=== PATIENT | female | born 1935 | race Caucasian/White ===

== ENCOUNTER 2019-02-15 10:19 | Outpatient (CLI) | payer OTHER | END 2019-02-15 10:20 | disposition home or self-care (01) | LOC: NONPT 10:19 | PROVIDERS: ATTEND Internal Medicine | DX: Z79.899 Other long term (current) drug therapy (principal) | CPT/HCPCS: 80053; 80164; 85025 ==

== ENCOUNTER 2019-08-18 13:51 | Inpatient (IN) ==
[2019-08-18 13:57] VITALS: BMI 29.2
--- NOTE | 2019-08-18 14:55 | ED.PDOC ---
General ED Provider: Dr. CHRISTIANNE MARIE Chief Complaint: Weakness Stated Complaint: [place] authorities stated patient developed increased weakness upon awakening today and appeared peoples in color , head listed to the lt side, associated low BP. Difficulties with ambulance availability and facility finally transported patient and upon arrival family indicate she was back to being her original self Time Seen by Physician: 14:20 Mode of Arrival: Wheelchair Information Source: Patient Exam Limitations: Clinical condition Primary Care Provider: RANDA REY Nursing and Triage Documentation Reviewed and Agree: Yes Does patient meet sepsis criteria?: No System Inflammatory Response Syndrome: Not Applicable Sepsis Protocol: For patient's 13 years and over: Temp is 96.8 and below OR 101 and greater Pulse >90 BPM Resp >20/minute Acutely Altered Mental Status Are patient's symptoms suggestive of a new infection, such as: -Pneumonia -Skin, Soft Tissue -Endocarditis -UTI -Bone, Joint Infection -Implantable Device -Acute Abdominal Infection -Wound Infection -Meningitis -Blood Stream Catheter Infection -Unknown Neurological Complaint Exam Weakness Complaint/Exam Last Known Well: last pm Onset: Sudden Duration: 30 min Symptoms Are: Still present Timing: Intermittent Episodes Lasting: Minutes Initial Severity: Moderate Current Severity: None Aggravating: Reports None Alleviating: Reports Rest Associated Signs and Symptoms: Denies Nausea, Vomiting, Diaphoresis, Tinnitus, Chest pain, Short of air, Palpitations, Unsteady gait, GI blood loss, Visual changes, Decreased oral intake, Change in medication, Change in diet, OTC meds and Loss of balance Related History: Similar episode (last ) Cardiac Risk Factors: Reports Hypertension, Family history and CAD Review of Systems Review Of Systems Constitutional: Reports Weakness Eyes: Reports No symptoms Ears, Nose, Mouth, Throat: Reports No symptoms Respiratory: Reports No symptoms Cardiac: Reports No symptoms GI: Reports No symptoms : Reports No symptoms Musculoskeletal: Reports No symptoms Skin: Reports No symptoms Neurological: Reports No symptoms, Emotional problems and Cognitive dysfunction Endocrine: Reports No symptoms Hematologic/Lymphatic: Reports No symptoms All Other Systems: Reviewed and Negative [facility] Medical History (Updated 08/18/19 @ 17:27 by LATASHA LOREDO RN) Benign breast lumps (Acute) Cataract (lens) fragments in eye following cataract surgery, bilateral (Acute) Constipation (Acute) Gallstones (Acute) History of colon resection (Acute) History of hysterectomy (Acute) History of thyroid disease (Acute) Hx of cholecystectomy (Acute) Hyperlipidemia (Acute) Hypertension (Acute) Influenza (Acute) Left-sided carotid artery obstruction (Acute) Pneumonia (Acute) Family History (Updated 08/18/19 @ 17:27 by LATASHA LOREDO RN) BROTHER Diabetes Mother Dementia SISTER Dementia Social History (Updated 08/18/19 @ 17:28 by LATASHA LOREDO RN) Smoking and tobacco status: Never smoker Physical Exam Physical Exam Appearance: Reports Ill-appearing, No pain distress and Thin Ill-appearing: Mild Pain Distress: Moderate Eyes: Reports AMI, EOMI and Conjunctiva clear ENT: Reports Ears normal, Nose normal and Oropharynx normal Neck: Supple Respiratory: Reports Airway patent Cardiovascular: Reports RRR GI/: Reports Soft and Bowel sounds hyperactive Skin: Reports Warm Neurological: Reports Sensation intact, Motor intact, Cranial nerves intact, Alert to pain and Unresponsive Psychiatric: Reports Affect appropriate, Mood appropriate, Anxious and Depressed Interpretation Radiology Interpretation Exam Interpreted: CT Scan (Ventriculomegaly. This may be out of proportion to the degree of atrophy, and a component of normal pressure hydrocephalus cannot be excluded. Small right thalamic hypodensity suspicious for a lacunar infarct of indeterminate age. MRI could further evaluate if clinically indicated. ) Physician Notification Case Discussed Physician Notified: Dr Rey- will admit Time of Notification: 15:30 Physician Notified: Dr Rey- ronaldthertahira Depakote level; admin extra 250 mg today/500 mg q AM Time of Notification: 17:40 Critical Care Note Critical Care Note Total Time (mins): 30 Course Course Hematology/Chemistry: 08/18/19 15:25 08/18/19 15:25 Orders, Labs, Meds: Lab Review 08/18/19 08/18/19 08/18/19 15:25 15:25 15:25 WBC 8.48 RBC 3.59 L Hgb 12.0 Hct 37.1 MCV 103.3 H MCH 33.4 H MCHC 32.3 RDW Coeff of Courtney 11.9 Plt Count 211 Immature Gran % (Auto) 0.5 Neut % (Auto) 62.2 Lymph % (Auto) 19.1 [place] % (Auto) 14.6 H Eos % (Auto) 3.1 Baso % (Auto) 0.5 Immature Gran # (Auto) 0.0 Neut # (Auto) 5.3 Lymph # (Auto) 1.6 [place] # (Auto) 1.2 Eos # (Auto) 0.3 Baso # (Auto) 0.0 Sodium 141.4 Potassium 4.34 Chloride 101.6 Carbon Dioxide 33.1 H Anion Gap 11.04 BUN 23.3 H Creatinine 0.83 Estimated GFR (MDRD) 65.00 BUN/Creatinine Ratio 28.07 Glucose 99.1 Calcium 9.02 Total Bilirubin 0.48 AST 46.1 H ALT 33.9 Alkaline Phosphatase 134.4 Troponin I < 0.012 Total Protein 6.83 Albumin 3.38 L Globulin 3.45 Albumin/Globulin Ratio 0.97 TSH 2.920 Valproic Acid 08/18/19 15:25 WBC RBC Hgb Hct MCV MCH MCHC RDW Coeff of Courtney Plt Count Immature Gran % (Auto) Neut % (Auto) Lymph % (Auto) [place] % (Auto) Eos % (Auto) Baso % (Auto) Immature Gran # (Auto) Neut # (Auto) Lymph # (Auto) [place] # (Auto) Eos # (Auto) Baso # (Auto) Sodium Potassium Chloride Carbon Dioxide Anion Gap BUN Creatinine Estimated GFR (MDRD) BUN/Creatinine Ratio Glucose Calcium Total Bilirubin AST ALT Alkaline Phosphatase Troponin I Total Protein Albumin Globulin Albumin/Globulin Ratio TSH Valproic Acid 40.41 L Orders Category Date Time Status EKG-(ED ONLY) Stat CARDIO 08/18/19 16:12 Completed ACTIVITY .Complete BR CARE 08/18/19 16:17 Completed INTAKE & OUTPUT Q8HR CARE 08/18/19 16:14 Active VITAL SIGNS Q8HR CARE 08/18/19 16:15 Active REGULAR DIET DIETARY 08/18/19 Dinner Ordered IV [ED IV/MEDIPORT/POWERPORT] .ONCE EMERGENCY 08/18/19 16:14 Active CBC W/ AUTO DIFF DAILY@0600 LAB 08/19/19 06:00 Ordered CBC W/ AUTO DIFF DAILY@0600 LAB 08/20/19 06:00 Ordered CBC W/ AUTO DIFF Stat LAB 08/18/19 15:25 Completed CMP [COMPREHENSIVE METABOLIC PANEL] Stat LAB 08/18/19 15:25 Completed COMPREHENSIVE METABOLIC PANEL DAILY@0600 LAB 08/19/19 06:00 Ordered COMPREHENSIVE METABOLIC PANEL DAILY@0600 LAB 08/20/19 06:00 Ordered KEPPRA/LEVETIRACETAM Stat LAB 08/18/19 15:25 Received TROPONIN I Stat LAB 08/18/19 15:25 Completed TSH [THYROID STIMULATING HORMONE] Stat LAB 08/18/19 15:25 Completed VALPORIC ACID (DEPAKENE) Stat LAB 08/18/19 15:25 Completed 0.9 % Sodium Chloride [Saline Flush] MEDS 08/18/19 16:14 Active 1 syr IVF PRN PRN RESUSCITATION STATUS Routine OTHERS 08/18/19 16:[address] HEAD W/O CONTRAST Stat RADS 08/18/19 15:04 Completed PT CONSULT Routine THERAPIES 08/18/19 Ordered Medications Generic Name Dose Route Start Last Admin Trade Name Freq PRN Reason Stop Dose Admin Acetaminophen 1,000 mg 08/18/19 17:32 Tylenol PO Q6H PRN Pain Aspirin 81 mg 08/19/19 09:00 Aspirin Chewable PO DAILY SILVINA Bisacodyl 10 mg 08/18/19 17:32 Dulcolax RC DAILY PRN Constipation Clonidine 0.1 mg 08/18/19 21:00 Catapres PO BID SILVINA Divalproex Sodium 500 mg 08/19/19 09:00 Depakote PO DAILY SILVINA Docusate Sodium 100 mg 08/18/19 21:00 Colace PO BID SILVINA Escitalopram Oxalate 20 mg 08/19/19 09:00 Lexapro PO DAILY SILVINA Levothyroxine Sodium 50 mcg 08/19/19 09:00 Synthroid PO DAILY SILVINA Losartan Potassium 25 mg 08/19/19 09:00 Cozaar PO DAILY SILVINA Non-Formulary Medication 250 mg 08/19/19 09:00 Divalproex [Depakote Sprinkles] PO DAILY SILVINA Non-Formulary Medication 500 mg 08/18/19 21:00 Divalproex [Depakote Sprinkles] PO BEDTIME SILVINA Non-Formulary Medication 3 mg 08/18/19 21:00 Melatonin PO BEDTIME SILVINA Quetiapine Fumarate 12.5 mg 08/18/19 21:00 Seroquel PO BEDTIME SILVINA Sodium Chloride 1 syr 08/18/19 16:14 Saline Flush IVF PRN PRN To flush IV Discontinued Medications Generic Name Dose Route Start Last Admin Trade Name Freq PRN Reason Stop Dose Admin Divalproex Sodium 250 mg 08/18/19 17:42 Depakote PO 08/18/19 17:43 ONCE STA Vital Signs: Temp Pulse Resp BP Pulse Ox 08/18/19 13:51 98.3 F 59 L 18 145/79 H 95 Discharge Plan Discharge Patient Disposition: ADMITTED INPATIENT Discharge Problem: Altered level of consciousness, Infarction of thalamus, Dementia ED Provider: CHRISTIANNE MARIE Condition: Fair Discharge Date/Time: 08/18/19 17:06 Additional Information: Discussed with Family and Dr Rey
[2019-08-18 15:33] LABS: HEMATOCRIT 37.1 % (37.0-47.0)
--- NOTE | 2019-08-18 15:37 | CT ---
EXAM: CT of the head without contrast. HISTORY: TIA. COMPARISON: None available. TECHNIQUE: Noncontrast CT of the head. FINDINGS: No intracranial hemorrhage or mass effect is identified. Moderate prominence of the sulci is identif ied. There is generalized dilation of the ventricles which may be out of proportion to the degree of atrophy. Moderate to severe bilateral periventricular white matter hypodensities are identified. A right thalamic small hypodensity is seen on axial image 17. Right occipital encephalomalacia is martin ntified. Intracranial calcified atherosclerotic plaque is present. The calvarium is intact. The visualized paranasal sinuses are unopacified. IMPRESSION: No intracranial hemorrhage or mass effect. Moderate to severe atrophy and chronic small vessel ischemic changes. Ventriculomegaly. This may be out of proportion to the degree of atrophy, and a component of normal pressure hydrocephalus cannot be excluded. Small right thalamic hypodensity suspicious for a lacunar infarct of indeterminate age. MRI could fu rther evaluate if clinically indicated. Right occipital remote infarct. Findings were discussed with Dr. Carlson at 1531 hours on 08/18/19.
[2019-08-18] MEDS ORDERED: DULCOLAX RC PRN (17:32)
[2019-08-18] MEDS ORDERED: TYLENOL PO PRN (17:32)
[2019-08-18] MEDS ORDERED: DEPAKOTE PO STA (17:42)
[2019-08-18] MEDS ORDERED: DEPAKOTE PO SCH (20:30)
[2019-08-18] MEDS: CATAPRES PO SCH (20:32)
[2019-08-18] MEDS: SEROQUEL PO SCH (20:32)
[2019-08-18] MEDS: COLACE PO SCH (20:32)
[2019-08-18] MEDS ORDERED: DEPAKOTE SPRINKLES PO SCH (21:00)
[2019-08-19 04:27] LABS: HEMATOCRIT 33.8 % (37.0-47.0)
[2019-08-19] MEDS: SYNTHROID PO SCH (06:02)
[2019-08-19] MEDS: ASPIRIN CHEWABLE PO SCH (08:53)
[2019-08-19] MEDS: COLACE PO SCH ×2 (08:54→20:01)
[2019-08-19] MEDS: CATAPRES PO SCH ×2 (08:54→20:02)
[2019-08-19] MEDS: LEXAPRO PO SCH (08:54)
[2019-08-19] MEDS: COZAAR PO SCH (08:54)
[2019-08-19] MEDS: DEPAKOTE SPRINKLES PO SCH ×2 (08:55→17:19)
[2019-08-19] MEDS ORDERED: DEPAKOTE PO SCH (09:00)
[2019-08-19] MEDS ORDERED: DEPAKOTE SPRINKLES PO SCH (09:00)
[2019-08-19] MEDS: SEROQUEL PO SCH (20:01)
[2019-08-20 05:14] LABS: HEMATOCRIT 37.8 % (37.0-47.0)
[2019-08-20] MEDS: SYNTHROID PO SCH (05:43)
[2019-08-20] MEDS: DEPAKOTE SPRINKLES PO SCH ×2 (09:17→16:51)
[2019-08-20] MEDS: COLACE PO SCH ×3 (09:20→20:59)
[2019-08-20] MEDS: LEXAPRO PO SCH (09:20)
[2019-08-20] MEDS: ASPIRIN CHEWABLE PO SCH (09:20)
[2019-08-20] MEDS: COZAAR PO SCH (09:21)
[2019-08-20] MEDS: CATAPRES PO SCH ×2 (09:22→20:40)
[2019-08-20] MEDS ORDERED: DEPAKOTE PO STA (09:33)
[2019-08-20] MEDS ORDERED: DEPAKOTE SPRINKLES PO STA (09:38)
--- NOTE | 2019-08-20 11:19 | US ---
EXAM: ULTRASOUND CAROTID DUPLEX, BILATERAL HISTORY: Altered mental status FINDINGS: Ceron-scale ultrasound, color Doppler and spectral analysis was performed. Velocities are in meters per second. By ceron scale and color Doppler imaging, there was heterogeneous atherosclerotic plaque identified bi laterally, greater on the right which at some points appeared to be at least 50% vessel diameter. RIGHT: External carotid artery peak systolic velocity: 1.1/0.07 Common carotid artery peak systolic velocity/end diastolic velocity: 0.85/0.15 Internal carotid artery peak systolic velocity: 0.94 ICA/CCA peak systolic velocity ratio: 1.1 ICA end diastolic velocity: 0.26 LEFT: External carotid artery peak systolic velocity: 0.81/0.06 Common carotid artery peak systolic velocity/end diastolic velocity: 0.93/0.09 Internal carotid artery peak systolic velocity: 0.8 ICA/CCA peak systolic velocity ratio: 0.9 ICA end diastolic velocity: 0.21 The right and left vertebral arteries were antegrade. IMPRESSION: 1. By ceron scale and color Doppler imaging, there was heterogeneous atherosclerotic plaque identifie d bilaterally, greater on the right which at some points appeared to be at least 50% vessel diameter. 2. Internal carotid artery peak systolic velocities and ICA/CCA peak systolic velocity ratios indica te no hemodynamically significant stenosis bilaterally. 3. Both vertebral arteries were antegrade.
[2019-08-20] MEDS: SEROQUEL PO SCH (20:41)
[2019-08-20] MEDS ORDERED: MACRODANTIN PO SCH (21:00)
[2019-08-20] MEDS: MACROBID PO SCH (22:03)
[2019-08-21 05:08] VITALS: BP 119/51; TEMP 97.9
[2019-08-21] MEDS: SYNTHROID PO SCH (06:03)
[2019-08-21] MEDS: MACROBID PO SCH (08:53)
[2019-08-21] MEDS: ASPIRIN CHEWABLE PO SCH (08:53)
[2019-08-21] MEDS: COZAAR PO SCH (08:54)
[2019-08-21] MEDS: LEXAPRO PO SCH (08:54)
[2019-08-21] MEDS: CATAPRES PO SCH (08:54)
[2019-08-21] MEDS: COLACE PO SCH (08:54)
[2019-08-21] MEDS: DEPAKOTE SPRINKLES PO SCH (08:54)
--- NOTE | 2019-08-21 10:18 | DS ---
DATE OF SERVICE: 08/21/19 FINAL DIAGNOSIS: 1. ALTERED MENTAL STATUS,MULTIFUNCTIONAL 2. DEHYDRATION, IMPROVED WITH IMPROVEMENT IN KIDNEY FUNCTIONS 3. 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 UTI ( GRAM NEG RODS) HX: 1. MUSCLE WEAKNESS 2. DIFFICULTY IN WALKING 3. UNSPECIFIED SEQUELAE OF CEREBRAL INFARCTION 4. HYPERLIPIDEMIA 5. VASCULAR DEMENTIA WITH BEHAVIORAL DISTURBANCE 6. UNSTEADINESS ON FEET 7. NEED FOR ASSISTANCE WITH PERSONAL CARE 8. COGNITIVE COMMUNICATION DEFICIT 9. ESSENTIAL ( PRIMARY) HYPERTENSION LAST VITALS Temp Pulse Resp BP Pulse Ox 97.9 F 57 L 14 119/51 L 94 L 08/21/19 05:05 08/21/19 05:05 08/21/19 05:05 08/21/19 05:05 08/21/19 05:05 DISCHARGE INSTRUCTIONS: 1. DISCHARGE AND RETURN TO [facility] TODAY WEDNESDAY, AUGUST 21, 2019. 2. TAKE TO [facility] : CBC, CMP AND VALPROIC ACID LEVEL IN A WEEK THEN VALPROIC ACID MONTHLY, CBC, CMP EVERY 3 MONTHS, LIPIDS, A1C, TSH, T 4 EVERY [address] WHITTAKER/YUVAL NOE APRN TO SEE ON ROUNDS IN 5 - 10 DAYS. 4. CODE STATUS: DO NOT RESUSCITATE. MEDICATIONS AT DISCHARGE: Acetaminophen (Tylenol) 1,000 mg PO Q6H PRN PRN Reason: Pain Last Admin: 08/19/19 17:18 Dose: 1,000 mg Documented by: Aspirin (Aspirin Chewable) 81 mg PO DAILY [facility] Last Admin: 08/21/19 08:53 Dose: 81 mg Documented by: Bisacodyl (Dulcolax) 10 mg RC DAILY PRN PRN Reason: Constipation Clonidine (Catapres) 0.1 mg PO BID [facility] Last Admin: 08/21/19 08:54 Dose: 0.1 mg Documented by: Divalproex Sodium (Depakote Sprinkles) 500 mg PO BIDWM [facility] Last Admin: 08/21/19 08:54 Dose: 500 mg Documented by: Docusate Sodium (Colace) 100 mg PO BID [facility] Last Admin: 08/21/19 08:54 Dose: 100 mg Documented by: Escitalopram Oxalate (Lexapro) 20 mg PO DAILY [facility] Last Admin: 08/21/19 08:54 Dose: 20 mg Documented by: Levothyroxine Sodium (Synthroid) 50 mcg PO DAILY@0630 [facility] Last Admin: 08/21/19 06:03 Dose: 50 mcg Documented by: Losartan Potassium (Cozaar) 25 mg PO DAILY AT BEDTIME [facility] Last Admin: 08/21/19 08:54 Dose: 25 mg Documented by: Nitrofurantoin Macrocrystals (Macrobid) 100 mg PO BID [facility] X 7 DAYS ---(NEW) Stop: 08/23/19 21:29 Last Admin: 08/21/19 08:53 Dose: 100 mg Documented by: Non-Formulary Medication (Melatonin) 3 mg PO BEDTIME [facility] Last Admin: 08/20/19 22:10 Dose: Not Given Documented by: Quetiapine Fumarate (Seroquel) 12.5 mg PO BEDTIME [facility] Last Admin: 08/20/19 20:41 Dose: 12.5 mg Documented by: VITAMIN B 12 1000 MCG IM MONTHLY ( CONTINUE WITH [place] SCHEDULE ) NEW PRESCRIPTIONS: DEPAKOTE 500 mg PO BID MACROBID 100 MG PO BID X 7 DAYS DISCONTINUED MEDICATIONS: Divalproex Sodium (Depakote Sprinkles) 250 mg PO DAILY [facility] Divalproex Sodium (Depakote Sprinkles) 500 mg PO BEDTIME [facility] DIET INSTRUCTIONS: SOFT MECHANICAL, SPOON FED, CLINICAL ANALYST CONSULT ACTIVITY: UP IN CHAIR TOLERATED. PROM TO EXTREMITIES TOLERATED PER FACILITY SMOKING: NON- APPLICABLE DISEASE SPECIFIC EDUCATION: DEMENTIA AND BEHAVIORS HOSPITAL COURSE: 84-year-old /White female hospitalized with altered mental status, possibility of stroke or TIA. The patient's overall neurological status was normal in ER except for confusion. The patient is moving all extremities. Depakote level is on the low side so she has been given a few extra doses. Regular dose was increased to 500 mg b.i.d. Macrobid 100 mg p.o. b.i.d. times 7 days was given at the time of discharge. UA abnormal. She had heavy growth of gram negative rods; identification is pending. I talked to patient's son and the patient is DNR and wants supportive and comfort measures. Condition at the time of discharge is stable. LAB REVIEW: 08/21/19 06:50: Valproic Acid 53.66 08/21/19 05:50: Sodium 140.0, Potassium 4.22, Chloride 102.2, Carbon Dioxide 31.6 H, Anion Gap 10.42, BUN 18.1 H, Creatinine 0.68, Estimated GFR (MDRD) 82.00, BUN/Creatinine Ratio 26.61, Glucose 93.8, Calcium 8.68, Total Bilirubin 0.43, AST 39.6 H, ALT 26.7, Alkaline Phosphatase 106.6, Total Protein 6.22 L, Albumin 2.99 L, Globulin 3.23, Albumin/Globulin Ratio 0.92 08/21/19 05:50: WBC 7.76, RBC 3.43 L, Hgb 11.4 L, Hct 35.0 L, MCV 102.0 H, MCH 33.2 H, MCHC 32.6, RDW Coeff of Courtney 11.8, Plt Count 232, Immature Gran % (Auto) 0.6, Neut % (Auto) 62.3, Lymph % (Auto) 21.1, [place] % (Auto) 12.6 H, Eos % (Auto) 3.0, Baso % (Auto) 0.4, Immature Gran # (Auto) 0.1, Neut # (Auto) 4.8, Lymph # (Auto) 1.6, [place] # (Auto) 1.0, Eos # (Auto) 0.2, Baso # (Auto) 0.0 08/20/19 11:15: Urine Color Light, Urine Clarity Cloudy, Urine pH 7.0, Ur Specific [place] 1.020, Urine Protein Negative, Urine Glucose (UA) Negative, Urine Ketones Negative, Urine Blood 1+ H, Urine Nitrite Positive H, Urine Bilirubin Negative, Urine Urobilinogen 1.0 H, Ur Leukocyte Esterase 3+ H, Urine Microscopic RBC 2-5, Urine Microscopic WBC Tntc, Ur Squamous Epith Cells 2-5, Urine Bacteria 2+ TIME SPENT: More than 60 minutes. SCRIBED BY: JAHAIRA KUMAR, Surgeon Assistant scribed while in presence of service performed by Dr. RANDA WHITTAKER on 08/21/19 ([id number]) [facility]ITAL[facility]
--- NOTE | 2019-08-21 10:19 | PCM.PROG ---
Attending Provider: ATTENDING PROVIDER: Dr. RANDA WHITTAKER DATE OF SERVICE: 08/21/19 SUBJECTIVE: This 84 year old /WHITE F was hospitalized 08/18/19 with altered mental status. The patient's neurological status is normal except mental status. The patient is moving all extremities. The patient's echocardiogram was normal. REVIEW OF SYSTEMS: CONSTITUTIONAL: No night sweats. No fatigue, malaise, lethargy. No fever or chills. HEENT: Eyes: No visual changes. No eye pain. No eye discharge. ENT: No runny nose. No epistaxis. No sinus pain. No odynophagia. No congestion. RESPIRATORY: No cough, no congestion. No hemoptysis. No shortness of breath. CARDIOVASCULAR: No angina symptoms. No CHF symptoms. No atypical chest pain for CAD. No palpitations. No orthopnea.. GASTROINTESTINAL: No abdominal pain. No nausea or vomiting. No diarrhea or constipation. No hematemesis. No hematochezia. GENITOURINARY: No urgency. No frequency. No dysuria. No hematuria. No obstructive symptoms. No discharge. No pain. No significant abnormal bleeding. MUSCULOSKELETAL: No musculoskeletal pain; no joint swelling. NEUROLOGICAL: Awake, alert, confused. No headache. No neck pain. No syncope. No seizures. No dizziness. PSYCHIATRIC: Not anxious. No depression. No suicidal thoughts. No homicidal thoughts. SKIN: No rash. No lesions. No wounds. ENDOCRINE: No unexplained weight loss. No weight gain. HEMATOLOGIC/LYMPHATIC: No anemia. No purpura. No petechiae. No prolonged or excessive bleeding. No palpable lymph nodes. PHYSICAL EXAMINATION: GENERAL: The patient is awake, alert but confused, lying/sitting in bed in no distress. VITAL SIGNS: Temperature 97.9 F, Pulse 57, Respiratory Rate 14, BP 119/51, Pulse Ox 94% HEENT: Head normocephalic, atraumatic. Eyes: Extraocular muscles are intact. Pupils are equal, round and reactive to light and accommodation. Ears: No lesions. Nose appeared normal. Throat: No exudate or erythema. NECK: Supple. No JVD, no carotid bruit. No lymphadenopathy or thyromegaly. LUNGS: Decreased breath sounds. Clear to auscultation. Percussion note normal. Chest symmetrical. HEART: S1, S2, no S3. No murmurs. No cyanosis or clubbing. No ascites. Pulses: Dorsalis pedis and posterior tibial pulses +1 to +2 both sides. ABDOMEN: Soft. Non-tender. Bowel sounds active. No CVA tenderness. No mass felt. EXTREMITIES: No edema. Full range of motion of all extremities, equal. NEUROLOGIC: No focal deficit. Cranial nerves II through XII are grossly intact. No headache, no double vision or headache. SKIN: Warm and dry. Intact. Turgor-normal. LYMPHATIC: No palpable lymph nodes/no lymphedema. MUSCULOSKELETAL: Normal joints with no swelling. Muscle tone is normal. LAB REVIEW: 08/21/19 05:50 08/21/19 05:50 08/21/19 06:50: Valproic Acid 53.66 08/21/19 05:50: Sodium 140.0, Potassium 4.22, Chloride 102.2, Carbon Dioxide 31.6 H, Anion Gap 10.42, BUN 18.1 H, Creatinine 0.68, Estimated GFR (MDRD) 82.00, BUN/Creatinine Ratio 26.61, Glucose 93.8, Calcium 8.68, Total Bilirubin 0.43, AST 39.6 H, ALT 26.7, Alkaline Phosphatase 106.6, Total Protein 6.22 L, Albumin 2.99 L, Globulin 3.23, Albumin/Globulin Ratio 0.92 08/21/19 05:50: WBC 7.76, RBC 3.43 L, Hgb 11.4 L, Hct 35.0 L, MCV 102.0 H, MCH 33.2 H, MCHC 32.6, RDW Coeff of Courtney 11.8, Plt Count 232, Immature Gran % (Auto) 0.6, Neut % (Auto) 62.3, Lymph % (Auto) 21.1, [place] % (Auto) 12.6 H, Eos % (Auto) 3.0, Baso % (Auto) 0.4, Immature Gran # (Auto) 0.1, Neut # (Auto) 4.8, Lymph # (Auto) 1.6, [place] # (Auto) 1.0, Eos # (Auto) 0.2, Baso # (Auto) 0.0 08/20/19 11:15: Urine Color Light, Urine Clarity Cloudy, Urine pH 7.0, Ur Specific [place] 1.020, Urine Protein Negative, Urine Glucose (UA) Negative, Urine Ketones Negative, Urine Blood 1+ H, Urine Nitrite Positive H, Urine Bilirubin Negative, Urine Urobilinogen 1.0 H, Ur Leukocyte Esterase 3+ H, Urine Microscopic RBC 2-5, Urine Microscopic WBC Tntc, Ur Squamous Epith Cells 2-5, Urine Bacteria 2+ ASSESSMENT: Please see below. 1. Altered mental status seems to have improved. She is still confused but alert. 2. Hydration status improved with improvement in kidney functions. 3. No neurological deficit. Depakote level was low and given two extra doses of Depakote. Depakote has been increased to 500 mg b.i.d. She likely had tonoclonic seizure. No evidence of TIA. Carotid scans were at least 50% in vessel diameter. PLAN: 1. Macrobid 100 mg b.i.d. for 7 days. 2. Depakote 500 mg b.i.d. 3. Discharge back to shelter today. 4. The patient is DNR. Plan and coordination of the patient's care discussed in the presence of Casino Accountant and nurse. CONDITION: Stable SCRIBED BY: JAHAIRA KUMAR [employer] Merchandiser scribed while in presence of service performed by Dr. RANDA WHITTAKER on 08/21/19 ([id number])
--- NOTE | 2019-08-21 12:08 | CM.DICTOOL ---
ADMISSION: 08/18/19 16:17 DISCHARGE: AUGUST 21, 2019 DATE OF SERVICE: 08/21/19 FINAL DIAGNOSIS ALTERED MENTAL STATUS,MULTIFUNCTIONAL DEHYDRATION, IMPROVED WITH IMPROVEMENT IN KIDNEY FUNCTIONS TIA VS TONIC CLONIC SEIZURE UTI ( GRAM NEG RODS) HX: MUSCLE WEAKNESS DIFFICULTY IN WALKING UNSPECIFIED SEQUELAE OF CEREBRAL INFARCTION HYPERLIPIDEMIA VASCULAR DEMENTIA WITH BEHAVIORAL DISTURBANCE UNSTEADINESS ON FEET NEED FOR ASSISTANCE WITH PERSONAL CARE COGNITIVE COMMUNICATION DEFICIT ESSENTIAL ( PRIMARY) HYPERTENSION LAST VITALS Temp Pulse Resp BP Pulse Ox 97.9 F 57 L 14 119/51 L 94 L 08/21/19 05:05 08/21/19 05:05 08/21/19 05:05 08/21/19 05:05 08/21/19 05:05 TAKE THESE MEDICATIONS AT HOME Acetaminophen (Tylenol) 1,000 mg PO Q6H PRN PRN Reason: Pain Last Admin: 08/19/19 17:18 Dose: 1,000 mg Documented by: Aspirin (Aspirin Chewable) 81 mg PO DAILY [facility] Last Admin: 08/21/19 08:53 Dose: 81 mg Documented by: Bisacodyl (Dulcolax) 10 mg RC DAILY PRN PRN Reason: Constipation Clonidine (Catapres) 0.1 mg PO BID [facility] Last Admin: 08/21/19 08:54 Dose: 0.1 mg Documented by: Divalproex Sodium (Depakote Sprinkles) 500 mg PO BIDWM [facility] Last Admin: 08/21/19 08:54 Dose: 500 mg Documented by: Docusate Sodium (Colace) 100 mg PO BID [facility] Last Admin: 08/21/19 08:54 Dose: 100 mg Documented by: Escitalopram Oxalate (Lexapro) 20 mg PO DAILY [facility] Last Admin: 08/21/19 08:54 Dose: 20 mg Documented by: Levothyroxine Sodium (Synthroid) 50 mcg PO DAILY@0630 [facility] Last Admin: 08/21/19 06:03 Dose: 50 mcg Documented by: Losartan Potassium (Cozaar) 25 mg PO DAILY AT BEDTIME [facility] Last Admin: 08/21/19 08:54 Dose: 25 mg Documented by: Nitrofurantoin Macrocrystals (Macrobid) 100 mg PO BID [facility] X 7 DAYS ---(NEW) Stop: 08/23/19 21:29 Last Admin: 08/21/19 08:53 Dose: 100 mg Documented by: Non-Formulary Medication (Melatonin) 3 mg PO BEDTIME [facility] Last Admin: 08/20/19 22:10 Dose: Not Given Documented by: Quetiapine Fumarate (Seroquel) 12.5 mg PO BEDTIME [facility] Last Admin: 08/20/19 20:41 Dose: 12.5 mg Documented by: VITAMIN B 12 1000 MCG IM MONTHLY ( CONTINUE WITH SCHEDULE ) ALLERGIES atorvastatin [From Lipitor] Adverse Reaction (Verified 08/18/19 14:52) Penicillins Adverse Reaction (Verified 08/18/19 14:52) antihyperlipidemics Adverse Reaction (Uncoded 08/18/19 14:52) dyes Adverse Reaction (Uncoded 08/18/19 14:52) DISCONTINUED MEDICATIONS Divalproex Sodium (Depakote Sprinkles) 250 mg PO DAILY [facility] Divalproex Sodium (Depakote Sprinkles) 500 mg PO BEDTIME [facility] NEW PRESCRIPTIONS: DEPAKOTE 500 mg PO BID MACROBID 100 MG PO BID X 7 DAYS SMOKING: NON- APPLICABLE DISEASE SPECIFIC EDUCATION: DEMENTIA AND BEHAVIORS LAB REVIEW: 08/21/19 05:50 08/21/19 05:50 08/21/19 06:50: Valproic Acid 53.66 08/21/19 05:50: Sodium 140.0, Potassium 4.22, Chloride 102.2, Carbon Dioxide 31.6 H, Anion Gap 10.42, BUN 18.1 H, Creatinine 0.68, Estimated GFR (MDRD) 82.00, BUN/Creatinine Ratio 26.61, Glucose 93.8, Calcium 8.68, Total Bilirubin 0.43, AST 39.6 H, ALT 26.7, Alkaline Phosphatase 106.6, Total Protein 6.22 L, Albumin 2.99 L, Globulin 3.23, Albumin/Globulin Ratio 0.92 08/21/19 05:50: WBC 7.76, RBC 3.43 L, Hgb 11.4 L, Hct 35.0 L, MCV 102.0 H, MCH 33.2 H, MCHC 32.6, RDW Coeff of Courtney 11.8, Plt Count 232, Immature Gran % (Auto) 0.6, Neut % (Auto) 62.3, Lymph % (Auto) 21.1, Daniels % (Auto) 12.6 H, Eos % (Auto) 3.0, Baso % (Auto) 0.4, Immature Gran # (Auto) 0.1, Neut # (Auto) 4.8, Lymph # (Auto) 1.6, Daniels # (Auto) 1.0, Eos # (Auto) 0.2, Baso # (Auto) 0.0 08/20/19 11:15: Urine Color Light, Urine Clarity Cloudy, Urine pH 7.0, Ur Specific [place] 1.020, Urine Protein Negative, Urine Glucose (UA) Negative, Urine Ketones Negative, Urine Blood 1+ H, Urine Nitrite Positive H, Urine Bilirubin Negative, Urine Urobilinogen 1.0 H, Ur Leukocyte Esterase 3+ H, Urine Microscopic RBC 2-5, Urine Microscopic WBC Tntc, Ur Squamous Epith Cells 2-5, Urine Bacteria 2+ PLAN: DISCHARGE AND RETURN TO [facility] TODAY TUESDAY, AUGUST 21, 2019 ACTIVITY: UP IN CHAIR TOLERATED. PROM TO EXTREMITIES TOLERATED PER FACILITY DIET : SOFT MECHANICAL, S[employer] CONSULT LABS: TAKE TO [facility] : CBC, CMP AND VALPORIC ACID LEVEL IN A WEEK THEN VALPORIC ACID MONTHLY CBC, CMP EVERY 3 MONTHS LIPIDS, A1C, TSH, T [address] WHITTAKER/YUVAL NOE, SHANA TO SEE ON ROUNDS IN 5 - 10 DAYS CODE STATUS: DO NOT RESUSCITATE MRS. POON REMAINS CONFUSED TO ALL ASPECTS EXCEPT TO SELF. USUALLY PLEASANTLY CONFUSED. REPORT THAT SHE GETS EMOTIONALLY UPSET EASILY AND WITH NO OBVIOUS CAUSE. DOES RECOVER FROM EPISODES AFTER SHE YELLS , SWINGS ARMS AND GETS EMOTIONAL WHEN STAFF IS PROVIDING PERSONAL CARE. VALPORIC ACID LEVEL WAS LOW WHEN SHE WAS SENT TO ED FROM [place] WITH ALTERED MENTAL STATUS AND SKIN DISCOLORATION. SKIN HAS REMAINED INTACT. REQUIRES TOTAL CARE. INCONTINENT OF BOWEL AND BLADDER. LAST BM 08/19/2019. DOES SIT UP IN A CHAIR AT TIMES AND TOLERATES WELL. HAS BEEN KNOWN TO WALK AT TIMES, RECENTLY. UNABLE TO PERFORM STRUCTURED ACTIVITY. WILL NOT FOLLOW INSTRUCTIONS, THOUGH PLEASANT AT TIMES WITH STAFF INTERACTIONS. MD YUVLA TORRES APRN
--- NOTE | 2019-08-22 07:10 | PN ---
BILLING 08/18/19 ADMISSION DATE LEVEL 5 08/19/19 INTERMEDIATE 08/20/19 INTERMEDIATE 08/21/19 DISCHARGE MTDD
--- NOTE | 2019-08-22 08:34 | PN ---
DATE OF SERVICE: 08/20/2019 SUBJECTIVE: 84 year old white female hospitalized with altered mental status. The patient's condition seems to have improved. She is more alert but sleepy. She is confused. REVIEW OF SYSTEMS: CONSTITUTIONAL: No night sweats. No fatigue, malaise, lethargy. No fever or chills. HEENT: Eyes: No visual changes. No eye pain. No eye discharge. ENT: No runny nose. No epistaxis. No sinus pain. No sore throat. No odynophagia. No congestion. RESPIRATORY: No cough, no congestion. No hemoptysis. No shortness of breath. CARDIOVASCULAR: No angina symptoms. No CHF symptoms. No atypical chest pain for CAD. No palpitations. No PND. No orthopnea. GASTROINTESTINAL: No abdominal pain. No nausea or vomiting. No diarrhea or constipation. No hematemesis. No hematochezia. GENITOURINARY: No urgency. No frequency. No dysuria. No hematuria. No obstructive symptoms. No discharge. No pain. No significant abnormal bleeding. MUSCULOSKELETAL: No musculoskeletal pain; no joint swelling. NEUROLOGICAL: No headache. No neck pain. No syncope. No seizures. No dizziness. PSYCHIATRIC: Not anxious. No depression. No suicidal thoughts. No homicidal thoughts. SKIN: No rash. No lesions. No wounds. ENDOCRINE: No unexplained weight loss. No weight gain. HEMATOLOGIC/LYMPHATIC: No anemia. No purpura. No petechiae. No prolonged or excessive bleeding. No palpable lymph nodes. PHYSICAL EXAMINATION: VITAL SIGNS: Temperature 97.8, pulse 58, respiratory rate 16, blood pressure 160/70 and pulse ox 98%. HEENT: Head normocephalic, atraumatic. Eyes: Extraocular muscles are intact. Pupils are equal, round and reactive to light and accommodation. Ears: No lesions. Nose appeared normal. Throat: No exudate or erythema. NECK: Supple. No JVD, no carotid bruit. No lymphadenopathy or thyromegaly. LUNGS: Decreased breath sounds but Clear to auscultation. Percussion note normal. Chest symmetrical. HEART: S1, S2, no S3. No murmurs. No cyanosis or clubbing. No ascites. Pulses: Dorsalis pedis and posterior tibial pulses +1 to +2 bilaterally. ABDOMEN: Soft. Nontender. Bowel sounds active. No CVA tenderness. No mass felt. EXTREMITIES: No edema. Full range of motion of all extremities, equal. NEUROLOGIC: No focal deficit. Cranial nerves II through XII are grossly intact. No headache, no double vision or headache. SKIN: Not dry. Intact. Turgor - normal. LYMPHATIC: No palpable lymph nodes/no lymphedema. MUSCULOSKELETAL: Normal joints with no swelling. Muscle tone is normal. LABS: hgb 12.2, hct 37, WBC 8,100 normal differential, creatinine 0.6, BUN 16, potassium 4.2 PLAN: 1. Depakote level was low yesterday and was given a couple of extra dose. Today she is going to be given one more extra dose. 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 I don't think the patient has TIA. 2. We will do carotid scan and also do an echocardiogram before her discharge CONDITION: Stable PROGNOSIS: Guarded TIME SPENT: More than 30 minutes. Plan and coordination of the patient's care discussed in the presence of nurse. MALCOLM
--- NOTE | 2019-08-22 14:03 | HP ---
DATE OF SERVICE: 08/18/2019 REASON FOR HOSPITALIZATION: Weakness and change in the mental status HISTORY OF PRESENT ILLNESS: 84 year old white female was brought to the emergency room as patient had her head tilted on the left side and skin somewhat peoples color and weakness. This patient this type of spells off and on that has been labeled as possibility of TIA or some kind of Tonic-clonic seizure. The patient has been on Depakote for that and whenever her level goes down that how she behaves according to the nursing staff correction. The patient in the emergency room was alert and had not neurological deficit. I examined her in the emergency room. The patient's family was in the room. The patient's family doesn't want any aggressive measure, transfer or any kind of resuscitation in case the patient has cardiopulmonary arrest. 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 No fatigue, malaise, lethargy. No fever or chills. HEENT: Eyes: No visual changes. No eye pain. No eye discharge. ENT: No runny nose. No epistaxis. No sinus pain. No sore throat. No odynophagia. No ear pain. No congestion. RESPIRATORY: No cough, no congestion. No hemoptysis. No shortness of breath. CARDIOVASCULAR: No angina symptoms. No CHF symptoms. No atypical chest pain for CAD. No palpitations. No PND. No orthopnea. GASTROINTESTINAL: No abdominal pain. No nausea or vomiting. No diarrhea or constipation. No hematemesis. No hematochezia. GENITOURINARY: No urgency. No frequency. No dysuria. No hematuria. No obstructive symptoms. No discharge. No pain. No significant abnormal bleeding. MUSCULOSKELETAL: No musculoskeletal pain. No joint swelling. No arthritis. NEUROLOGICAL: No headache. No neck pain. No syncope. No seizures. No dizziness. The patient is alert but confused. Talks but difficult to understand. PSYCHIATRIC: Not anxious. No depression. No suicidal thoughts. No homicidal thoughts. SKIN: No rash. No lesions. No wounds. ENDOCRINE: No unexplained weight loss. No weight gain. HEMATOLOGIC/LYMPHATIC: No anemia. No purpura. No petechiae. No prolonged or excessive bleeding. No palpable lymph nodes. PERSONAL/FAMILY/SOCIAL HISTORY: The patient is and lives in the correction. The son is [employer] for health. The patient is DNR. Practically not able to do most of the activity of daily living. She is able to walk. MEDICATIONS: Acetaminophen Aspirin Dulcolax Clonidine Depakote Lexapro Levothyroxine Losartan Melatonin Seroquel ALLERGIES: Atorvastatin Penicillin Antihyperlipidemic Dye PHYSICAL EXAMINATION: GENERAL: The patient is confused but alert. VITAL SIGNS: Temperature 98.3, pulse 60, respiratory rate 18, blood pressure 150/80 and pulse ox 95%. HEENT: Head normocephalic, atraumatic. Eyes: Extraocular muscles are intact. Pupils are equal, round and reactive to light and accommodation. Ears: No lesions. Nose appeared normal. Throat: No exudate or erythema. NECK: Supple. No JVD, no carotid bruit. No lymphadenopathy or thyromegaly. LUNGS: Clear to auscultation. Percussion note normal. Chest symmetrical. HEART: S1, S2, no S3. Grade I to II/ systolic murmur. No cyanosis or clubbing. No ascites. Pulses: Dorsalis pedis and posterior tibial pulses +1 to +2 bilaterally. ABDOMEN: Soft. Nontender. Bowel sounds active. No CVA tenderness. No mass felt. EXTREMITIES: No edema. Full range of motion of all extremities, equal. NEUROLOGIC: No focal deficit. Cranial nerves II through XII are grossly intact. No headache, no double vision or headache. SKIN: Not dry. Intact. Turgor - normal. LYMPHATIC: No palpable lymph nodes/no lymphedema. MUSCULOSKELETAL: Normal joints with no swelling. Muscle tone is normal. LABS: Hgb 12, hct 37, WBC 8,400 normal differential, creatinine 0.8, BUN 23, Valproic acid level 40 which is low. Chest x-ray is negative. CT scan of the head was negative. No intracranial hemorrhage. 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 The patient had moderate to severe atrophy of small vessels. The CT scan, high blood pressure and hydrocephalus was discussed with family members and son but they are not wanting to go to any neurologist. The said that mother is too far gone which I agree with the patient's son. They don't want any further evaluation by any neurologist. Small right thalamic hypodensity suspicious for lacunar infarct was discussed. They declined any MRI. In any case the patient won't be able to lay still with her mental status. The patient also has right occipital remote infarct finding on CT of the head. ASSESSMENT: 1. Change in the mental status with weakness. 2. TIA type of episodes which could be Tonic-clonic seizure. No evidence of any neurological deficit on admission to emergency room. 3. Mild dehydration 4. Dementia 5. History of hypertension 6. Hypothyroidism 7. BMI of 29 PLAN: 1. Admit the patient 2. Telemetry 3. Oximetry 4. Troponin and CK-MB 5. EKG 6. Daily CBC and CMP 7. Extra doses of Depakote two or three times in 24 hours 8. Monitor Depakote level 9. Discussed the case with the family and the patient's family wants her to be DNR. They don't want any heroic measures. They want comfort measures with routine care. CONDITION: Stable PROGNOSIS: Guarded TIME SPENT: More than 70 minutes. MALCOLM
--- NOTE | 2019-08-23 11:32 | ECHO2D ---
Date of Exam: 08/21/2019 Ordering Physician: DR. RANDA WHITTAKER Room #: 122 Reason for Echo: ALTERED MENTAL STATUS, DYSPNEA, HYPERLIPIDEMIA, HTN M-Mode Normal Adult Results LV Dimensions Normal Adult Results AoV Opening excursions >1.6 >1.6 LVEDD-base- 3.5-5.8 3.9 Ao root dimensions 2.0-3.7 3.0 LVESD-base- 3.1-4.6 L. Atrium dimensions 1.9-3.8 4.7 Post. Wall thickness 0.8-1.1 1.0 IV septum (thickness) 0.7-1.2 1.1 Post. Wall excursion 0.72-1.3 NORMAL Septal motion NORMAL Systolic motion R. Ventricular cavity 1.5-2.0 NORMAL LVEF 60% 68% Paradoxical septal wall motion NORMAL 2-D : 2-D M Mode Echocardiogram was performed using apical four chamber and left parasternal long and short axis views. Mitral, tricuspid and aortic valves appear to be normal. Contractility of the left ventricle seems to be normal, so is the cavity size. Left atrial cavity size and aortic root appear to be normal. There is no pericardial effusion. There is no thrombus noted in the left ventricle or left atrial cavity. No mitral valve prolapse noted. M-MODE: MV: NORMAL AV: NORMAL TV: NORMAL PV: CHAMBER SIZE: NORMAL WALL MOTION: NORMAL PERICARDIUM: NORMAL INTERPRETATION: 1. ENLARGED LEFT ATRIAL CAVITY 2. NORMAL LEFT VENTRICULAR CONTRACTILITY 3. NORMAL VALVES MTDD
--- NOTE | 2019-08-28 12:59 | PN ---
DATE OF SERVICE: 08/19/2019 SUBJECTIVE: 84 year old white female hospitalized with altered mental status. The patient had TIA type of symptoms but she did not have any neurological deficit by the time she came to the emergency room. She was a whole lot better and acting normally. She is confused but alert. REVIEW OF SYSTEMS: CONSTITUTIONAL: No night sweats. No fatigue, malaise, lethargy. No fever or chills. HEENT: Eyes: No visual changes. No eye pain. No eye discharge. ENT: No runny nose. No epistaxis. No sinus pain. No sore throat. No odynophagia. No congestion. RESPIRATORY: No cough, no congestion. No hemoptysis. No shortness of breath. CARDIOVASCULAR: No angina symptoms. No CHF symptoms. No atypical chest pain for CAD. No palpitations. No PND. No orthopnea. GASTROINTESTINAL: No abdominal pain. No nausea or vomiting. No diarrhea or constipation. No hematemesis. No hematochezia. Appetite almost normal. Needs to be fed. GENITOURINARY: No urgency. No frequency. No dysuria. No hematuria. No obstructive symptoms. No discharge. No pain. No significant abnormal bleeding. MUSCULOSKELETAL: No musculoskeletal pain; no joint swelling. NEUROLOGICAL: No headache. No neck pain. No syncope. No seizures. No dizziness. PSYCHIATRIC: Not anxious. No depression. No suicidal thoughts. No homicidal thoughts. SKIN: No rash. No lesions. No wounds. ENDOCRINE: No unexplained weight loss. No weight gain. HEMATOLOGIC/LYMPHATIC: No anemia. No purpura. No petechiae. No prolonged or excessive bleeding. No palpable lymph nodes. PHYSICAL EXAMINATION: GENERAL: The patient is resident of detention. VITAL SIGNS: Temperature 98.2, pulse 54, respiratory rate 18, blood pressure 132/67 and pulse ox 96%. HEENT: Head normocephalic, atraumatic. Eyes: Extraocular muscles are intact. Pupils are equal, round and reactive to light and accommodation. FACE: Symmetrical. Ears: No lesions. Nose appeared normal. Throat: No exudate or erythema. NECK: Supple. No JVD, no carotid bruit. No lymphadenopathy or thyromegaly. LUNGS: Decreased breath sounds but clear to auscultation. Percussion note normal. Chest symmetrical. HEART: S1, S2, no S3. No murmurs. No cyanosis or clubbing. No ascites. Pulses: Dorsalis pedis and posterior tibial pulses +1 to +2 bilaterally. ABDOMEN: Soft. Nontender. Bowel sounds active. No CVA tenderness. No mass felt. EXTREMITIES: No edema. Full range of motion of all extremities, equal. NEUROLOGIC: No focal deficit. Cranial nerves II through XII are grossly intact. No headache, no double vision or headache. SKIN: Not dry. Intact. Turgor - normal. LYMPHATIC: No palpable lymph nodes/no lymphedema. MUSCULOSKELETAL: Normal joints with no swelling. Muscle tone is normal. LABS: hgb 10.9, hct 33, WBC 8,300 normal differential, creatinine 0.6, BUN 20, potassium 3.9. ASSESSMENT: 1. Tonic-clonic seizure likely instead of TIA PLAN: 1. Carotid scan 2. Telemetry 3. Echocardiogram 4. Depakote is high to 70 now which is within normal range. The patient's dose of Depakote has been increased. Yesterday was given an extra dose. CONDITION: Stable. TIME SPENT: More than 30 minutes. Plan and coordination of the patient's care discussed in the presence of nurse. MALCOLM
--- NOTE | 2019-08-28 13:34 | PN ---
DATE OF SERVICE: 08/18/2019 SUBJECTIVE: 84 year old white female seen in the emergency room was hospitalized. [facility]. The patient had an episode where she almost became limp and then became alert. The patient is confused and demented. The patient has been labeled to have TIA with abnormal CT scan that was done in the emergency room but they were chronic findings. The patient likely has tonic-clonic seizures and her Depakote is low so we will bump the Depakote level and see how she does. The patient was alert but disoriented. The son was presented. REVIEW OF SYSTEMS: CONSTITUTIONAL: No night sweats. No fatigue, malaise, lethargy. No fever or chills. HEENT: Eyes: No visual changes. No eye pain. No eye discharge. ENT: No runny nose. No epistaxis. No sinus pain. No sore throat. No odynophagia. No congestion. RESPIRATORY: No cough, no congestion. No hemoptysis. No shortness of breath. CARDIOVASCULAR: No angina symptoms. No CHF symptoms. No atypical chest pain for CAD. No palpitations. No PND. No orthopnea. GASTROINTESTINAL: No abdominal pain. No nausea or vomiting. No diarrhea or constipation. No hematemesis. No hematochezia. GENITOURINARY: No urgency. No frequency. No dysuria. No hematuria. No obstructive symptoms. No discharge. No pain. No significant abnormal bleeding. MUSCULOSKELETAL: No musculoskeletal pain; no joint swelling. NEUROLOGICAL: No headache. No neck pain. No syncope. No seizures. No dizziness. PSYCHIATRIC: Not anxious. No depression. No suicidal thoughts. No homicidal thoughts. SKIN: No rash. No lesions. No wounds. ENDOCRINE: No unexplained weight loss. No weight gain. HEMATOLOGIC/LYMPHATIC: No anemia. No purpura. No petechiae. No prolonged or excessive bleeding. No palpable lymph nodes. PHYSICAL EXAMINATION: HEENT: Head normocephalic, atraumatic. FACE: Symmetrical there was no neurological deficit. Eyes: Extraocular muscles are intact. Pupils are equal, round and reactive to light and accommodation. Ears: No lesions. Nose appeared normal. Throat: No exudate or erythema. NECK: Supple. No JVD, no carotid bruit. No lymphadenopathy or thyromegaly. LUNGS: Decreased breath sounds but clear to auscultation. Percussion note normal. Chest symmetrical. HEART: S1, S2, no S3. No murmurs. No cyanosis or clubbing. No ascites. Pulses: Dorsalis pedis and posterior tibial pulses +1 to +2 bilaterally. ABDOMEN: Soft. Nontender. Bowel sounds active. No CVA tenderness. No mass felt. EXTREMITIES: No edema. Full range of motion of all extremities, equal. NEUROLOGIC: No focal deficit. Cranial nerves II through XII are grossly intact. No headache, no double vision or headache. SKIN: Not dry. Intact. Turgor - normal. LYMPHATIC: No palpable lymph nodes/no lymphedema. MUSCULOSKELETAL: Normal joints with no swelling. Muscle tone is normal. LABS: Electrolytes were normal. Depakote level was reported as low. The patient is on 250 in the morning and 500mg at night. The patient will be given 250mg of Depakote extra. PLAN: 1. Admit the patient and define her source that she is having. 2. On Tuesday the patient will undergo a Carotid scan. 3. We will also do echocardiogram 4. Telemetry will monitor her rhythm 5. The patient is DNR. The patient family wants noninvasive workup. Just wants her to be comfortable. TIME SPENT: More than 30 minutes. Plan and coordination of the patient's care discussed in the presence of nurse. MALCOLM
== END 2019-08-21 13:55 | DRG 884 ==
LOC: ED 13:51 → MEDSURG B 16:17
PROVIDERS: ADMIT Internal Medicine; ATTEND Internal Medicine
DX: E78.5 Hyperlipidemia, unspecified; R40.4 Transient alteration of awareness; R41.82 Altered mental status, unspecified; I10 Essential (primary) hypertension; I63.9 Cerebral infarction, unspecified; Z79.899 Other long term (current) drug therapy; E86.0 Dehydration; G40.309 Generalized idiopathic epilepsy and epileptic syndromes, not intractable, without status epilepticus; N39.0 Urinary tract infection, site not specified; E03.9 Hypothyroidism, unspecified; Z68.29 Body mass index [BMI] 29.0-29.9, adult; F01.51 Vascular dementia, unspecified severity, with behavioral disturbance; R53.1 Weakness; Z51.81 Encounter for therapeutic drug level monitoring; Z86.73 Personal history of transient ischemic attack (TIA), and cerebral infarction without residual deficits

== ENCOUNTER 2020-04-17 18:21 | Inpatient (IN) ==
--- NOTE | 2020-04-17 18:53 | ED.PDOC ---
General <CHRISTIANNE MARIE DO - Last Filed: 04/20/20 08:45> ED Provider: Dr. CHRISTIANNE MARIE Stated Complaint: Referred to ER due to difficulty swallowing and apparent changes in her mentation although EMS advised NH staff felt pt was status quo. Sent in by Dr Rey Time Seen by Physician: 18:30 Mode of Arrival: Stretcher Information Source: Correction and EMT Exam Limitations: Dementia Primary Care Provider: RANDA REY Referred to ED by: PCP Nursing and Triage Documentation Reviewed and Agree: Yes Does patient meet sepsis criteria?: No System Inflammatory Response Syndrome: Not Applicable Sepsis Protocol: For patient's 13 years and over: Temp is 96.8 and below OR 101 and greater Pulse >90 BPM Resp >20/minute Acutely Altered Mental Status Are patient's symptoms suggestive of a new infection, such as: -Pneumonia -Skin, Soft Tissue -Endocarditis -UTI -Bone, Joint Infection -Implantable Device -Acute Abdominal Infection -Wound Infection -Meningitis -Blood Stream Catheter Infection -Unknown Neurological Complaint Exam <CHRISTIANNE MARIE DO - Last Filed: 04/20/20 08:45> Altered Mental Status Complaint/Exam Current Mental Status: Other (would not initially swallow a food bolus) Last Known Well: Today Onset: Sudden Symptoms Are: Resolved Timing: Intermittent Episodes Lasting: Minutes Initial Severity: Moderate (Chronic dementia) Current Severity: Moderate Eye Deviation Present: No Character: Reports Confusion and Lethargy Aggravating: Reports None Alleviating: Reports None Associated Signs and Symptoms: Denies Dizziness, Weakness, Headache, Fever, Illness, Nuchal rigidity, Seizure, Nausea, Vomiting, Recently depressed and Trauma Related History: Reports Similar episode Cardiac Risk Factors: Reports None CVA Risk Factors: Reports None Related Surgical History: Reports None Carotid Bruit Present: No Nystagmus Present: No Gag Reflex Present: Yes Meningeal Signs Positive: No Focal Weakness: Present None Focal Sensory Loss: Present None Gait: Unable Signs of Injury: Present Normal findings Thrombolytics Considered: No Differential Diagnoses: Metabolic Disorder, Hypoglycemia, Sepsis and Other (Dementia) Review of Systems <CHRISTIANNE MARIE DO - Last Filed: 04/20/20 08:45> Review Of Systems Constitutional: Reports No symptoms Eyes: Reports No symptoms Ears, Nose, Mouth, Throat: Reports No symptoms Respiratory: Reports No symptoms Cardiac: Reports No symptoms GI: Reports Difficulty swallowing : Reports No symptoms Musculoskeletal: Reports No symptoms Skin: Reports No symptoms Neurological: Reports No symptoms Endocrine: Reports No symptoms Hematologic/Lymphatic: Reports No symptoms All Other Systems: Reviewed and Negative PFSH <CHRISTIANNE MARIE DO - Last Filed: 04/20/20 08:45> Medical History (Updated 04/17/20 @ 19:04 by CHRISTIANNE MARIE DO) Benign breast lumps Cataract (lens) fragments in eye following cataract surgery, bilateral Constipation Gallstones History of thyroid disease Hyperlipidemia Hypertension Influenza Left-sided carotid artery obstruction Pneumonia Family History (Updated 08/18/19 @ 17:27 by LATASHA LOREDO, RN) BROTHER Diabetes Mother Dementia SISTER Dementia Social History (Updated 08/18/19 @ 17:28 by LATASHA LOREDO, RN) Smoking and tobacco status: Never smoker Surgical History (Updated 08/21/19 @ 08:17 by JAHAIRA KUMAR) History of colon resection History of hysterectomy History of knee replacement Hx of cholecystectomy Physical Exam <CHRISTIANNE MARIE DO - Last Filed: 04/20/20 08:45> Physical Exam Appearance: Reports Ill-appearing and Thin Ill-appearing: Mild Pain Distress: None Eyes: Reports AMI, EOMI, Conjunctiva clear and Conjunctiva pale Neck: Supple Respiratory: Reports Airway patent, Breath sounds clear and Breath sounds equal Cardiovascular: Reports RRR and Pulses normal GI/: Reports Soft, Nontender, No masses, Bowel sounds normal and No Organomegaly Musculoskeletal: Reports Normal strength, ROM intact, No edema and No calf tenderness Skin: Reports Warm, Dry and Normal color Neurological: Reports Sensation intact, Motor intact and Disoriented Psychiatric: Reports Affect appropriate and Mood appropriate; Denies Anxious <CHRISTIANNE CHRISTIE MD - Last Filed: 04/17/20 21:57> Radiology Interpretation Radiology Interpretation By: ED Physician Radiology Results: No acute changes Exam Interpreted: CT Scan EKG Interpretation Time of EKG #1: 21:37 Rate: Normal Rhythm: Other Ectopy: None [place]: [place] ST Segment: Normal Interpretation: st abnormality Physician Notification <CHRISTIANNE MARIE DO - Last Filed: 04/20/20 08:45> Case Discussed Physician Notified: Dr Akers- transferred care Time of Notification: 18:50 <CHRISTIANNE CHRISTIE MD - Last Filed: 04/17/20 21:57> Critical Care Note Total Critical Care Time (mins): 0 Course <CHRISTIANNE MARIE DO - Last Filed: 04/20/20 08:45> Course Hematology/Chemistry: 04/20/20 06:48 04/20/20 06:48 Orders, Labs, Meds: Lab Review 04/17/20 04/17/20 04/17/20 19:17 19:17 19:17 WBC 11.86 H RBC 3.26 L Hgb 11.4 L Hct 33.6 L MCV 103.1 H MCH 35.0 H MCHC 33.9 RDW Coeff of Courtney 13.2 Plt Count 175 Immature Gran % (Auto) 0.4 Neut % (Auto) 82.4 H Lymph % (Auto) 7.9 L Trigg % (Auto) 8.8 Eos % (Auto) 0.3 Baso % (Auto) 0.2 Neut # (Auto) 9.8 H Lymph # (Auto) 0.9 Trigg # (Auto) 1.0 Eos # (Auto) 0.0 Baso # (Auto) 0.0 Immature Gran # (Auto) 0.1 Sodium 136.0 Potassium 4.11 Chloride 99.9 Carbon Dioxide 29.2 Anion Gap 11.01 BUN 19.0 H Creatinine 0.60 Estimated GFR (MDRD) 95.00 BUN/Creatinine Ratio 31.66 Glucose 142.6 H Lactic Acid Calcium 9.11 Magnesium 1.62 Iron TIBC % Saturation Total Bilirubin 0.58 AST 32.5 ALT 11.3 Alkaline Phosphatase 67.3 Troponin I 0.015 Total Protein 6.82 Albumin 3.15 L Globulin 3.67 Albumin/Globulin Ratio 0.85 Vitamin B12 Procalcitonin < 0.05 Free T4 Urine Color Urine Clarity Urine pH Ur Specific [place] Urine Protein Urine Glucose (UA) Urine Ketones Urine Blood Urine Nitrite Urine Bilirubin Urine Urobilinogen Ur Leukocyte Esterase Urine Microscopic RBC Urine Microscopic WBC Ur Squamous Epith Cells Urine Bacteria Valproic Acid 04/17/20 04/17/20 04/17/20 19:17 19:17 20:35 WBC RBC Hgb Hct MCV MCH MCHC RDW Coeff of Courtney Plt Count Immature Gran % (Auto) Neut % (Auto) Lymph % (Auto) Trigg % (Auto) Eos % (Auto) Baso % (Auto) Neut # (Auto) Lymph # (Auto) Trigg # (Auto) Eos # (Auto) Baso # (Auto) Immature Gran # (Auto) Sodium Potassium Chloride Carbon Dioxide Anion Gap BUN Creatinine Estimated GFR (MDRD) BUN/Creatinine Ratio Glucose Lactic Acid 1.34 Calcium Magnesium Iron 21.9 L TIBC 246 L % Saturation 9 Total Bilirubin AST ALT Alkaline Phosphatase Troponin I Total Protein Albumin Globulin Albumin/Globulin Ratio Vitamin B12 962 H Procalcitonin Free T4 1.70 Urine Color Yellow Urine Clarity Slightly Urine pH 6.0 Ur Specific [place] 1.025 Urine Protein 1+ H Urine Glucose (UA) Negative Urine Ketones 1+ H Urine Blood Trace-intact H Urine Nitrite Positive H Urine Bilirubin Negative Urine Urobilinogen 1.0 H Ur Leukocyte Esterase 3+ H Urine Microscopic RBC 10-20 Urine Microscopic WBC Tntc Ur Squamous Epith Cells 5-10 Urine Bacteria 3+ Valproic Acid 18.15 L Orders Category Date Time Status ADMIT PATIENT INPATIENT .TO MEDSURG (NON-MONITORED ADMISSION 04/17/20 21:57 Active BED) EKG-(ED ONLY) Stat CARDIO 04/17/20 18:45 Completed ACTIVITY .Complete BR CARE 04/17/20 21:57 Active INTAKE & OUTPUT Q8HR CARE 04/17/20 21:58 Active VITAL SIGNS Q8HR CARE 04/17/20 21:58 Active ED CATHETER INSERTION AND CARE .ONCE EMERGENCY 04/17/20 20:05 Active IV [ED IV/MEDIPORT/POWERPORT] .ONCE EMERGENCY 04/17/20 19:00 Active BLOOD CULTURE (ED ONLY) Stat LAB 04/17/20 19:10 Results CBC W/ AUTO DIFF DAILY@0600 LAB 04/18/20 08:25 Completed CBC W/ AUTO DIFF DAILY@0600 LAB 04/19/20 06:52 Completed CBC W/ AUTO DIFF Stat LAB 04/17/20 19:17 Completed CMP [COMPREHENSIVE METABOLIC PANEL] Stat LAB 04/17/20 19:17 Completed COMPREHENSIVE METABOLIC PANEL DAILY@0600 LAB 04/18/20 08:25 Completed COMPREHENSIVE METABOLIC PANEL DAILY@0600 LAB 04/19/20 06:52 Completed FREE T4 (FREE THYROXINE) Stat LAB 04/17/20 19:17 Completed IRON AND TIBC Stat LAB 04/17/20 19:17 Completed LACTIC ACID Stat LAB 04/17/20 19:17 Completed MAGNESIUM Stat LAB 04/17/20 19:17 Completed PROCALCITONIN Stat LAB 04/17/20 19:17 Completed TROPONIN I Stat LAB 04/17/20 19:17 Completed UA [URINALYSIS C & S IF INDICATED] Stat LAB 04/17/20 20:35 Completed URINE CULTURE Stat LAB 04/17/20 20:35 Completed VALPORIC ACID (DEPAKENE) Stat LAB 04/17/20 19:17 Completed VITAMIN B12 Stat LAB 04/17/20 19:17 Completed 0.9 % Sodium Chloride [Saline Flush] MEDS 04/17/20 19:00 Active 1 syr IVF PRN PRN Acetaminophen [Tylenol] MEDS 04/17/20 22:00 Active 1,000 mg PO Q6H PRN Aspirin [Aspirin Chewable] MEDS 04/18/20 09:00 Discontinued 81 mg PO DAILY Aztreonam [Azactam] 1 gm MEDS 04/18/20 23:30 Discontinued 0.9 % Sodium Chloride [Sodium Chloride] 50 ml IV Q12HR Bisacodyl [Dulcolax] MEDS 04/17/20 22:00 Active 10 mg RC DAILY PRN Clonidine HCl [Catapres] MEDS 04/18/20 09:00 Active 0.1 mg PO BID Docusate Sodium [Colace] MEDS 04/18/20 09:00 Active 100 mg PO BID Enoxaparin Sodium [Lovenox] MEDS 04/18/20 09:00 Active 40 mg SUBCUT DAILY Escitalopram Oxalate [Lexapro] MEDS 04/18/20 09:00 Active 20 mg PO DAILY Levothyroxine Sodium [Synthroid] MEDS 04/18/20 06:30 Active 50 mcg PO 0630 Lidocaine (Uro-Jet) [Uro-Jet] MEDS 04/17/20 20:05 Discontinued 10 ml MUCOUSMEMB ONCE STA Ondansetron HCl [Zofran Tab] MEDS 04/17/20 22:00 Active 4 mg PO Q6H PRN Quetiapine Fumarate [Seroquel] MEDS 04/18/20 21:00 Active 12.5 mg PO BEDTIME Sodium Chloride 0.9% [Sodium Chloride] 1,000 ml MEDS 04/17/20 22:00 Active IV 75 mls/hr Sodium Chloride 0.9% [Sodium Chloride] 1,000 ml MEDS 04/17/20 19:00 Discontinued IV BOLUS melatonin MEDS 04/18/20 21:00 Active 3 mg PO BEDTIME RESUSCITATION STATUS Routine OTHERS 04/17/20 21:[address] CHEST W/O CONTRAST Stat RADS 04/17/20 20:[address] HEAD W/O CONTRAST Stat RADS 04/17/20 18:59 Completed Medications Generic Name Dose Route Start Last Admin Trade Name Freq PRN Reason Stop Dose Admin Acetaminophen 1,000 mg 04/17/20 22:00 04/18/20 09:37 Acetaminophen 500 Mg Tablet PO 1,000 mg Q6H PRN Administration Mild Pain Aspirin 81 mg 04/19/20 08:30 04/20/20 08:43 Aspirin 81 Mg Tab.Chew PO 81 mg DAILYWM SILVINA Administration Bisacodyl 10 mg 04/17/20 22:00 Bisacodyl 10 Mg Supp.Rect RC DAILY PRN Constipation Clonidine 0.1 mg 04/18/20 09:00 04/20/20 08:43 Clonidine Hcl 0.1 Mg Tablet PO 0.1 mg BID SILVINA Administration Docusate Sodium 100 mg 04/18/20 09:00 04/20/20 08:43 Docusate Sodium 100 Mg Capsule PO 100 mg BID SILVINA Administration Enoxaparin Sodium 40 mg 04/18/20 09:00 04/19/20 08:33 Enoxaparin Sodium 40 Mg/0.4 Ml Syr SUBCUT 40 mg DAILY SILVINA Administration Escitalopram Oxalate 20 mg 04/18/20 09:00 04/20/20 08:43 Escitalopram Oxalate 10 Mg Tablet PO 20 mg DAILY SILVINA Administration Sodium Chloride 1,000 mls @ 75 mls/hr 04/17/20 22:00 04/19/20 22:08 Sodium Chloride IV Not Given .[id number] SILVINA Aztreonam 1 gm/ Sodium 50 mls @ 75 mls/hr 04/18/20 09:00 04/20/20 08:44 Chloride IV 04/21/20 08:59 75 mls/hr Q12HR SILVINA Administration Levothyroxine Sodium 50 mcg 04/18/20 06:30 04/20/20 06:07 Levothyroxine Sodium 50 Mcg Tablet PO 50 mcg 0630 SILVINA Administration Non-Formulary Medication 3 mg 04/18/20 21:00 04/19/20 20:37 Melatonin PO 3 mg BEDTIME SILVINA Administration Non-Formulary Medication 500 mg 04/18/20 21:00 04/19/20 20:37 Valproic Acid (As Sodium Salt) PO 500 mg BEDTIME SILVINA Administration Non-Formulary Medication 250 mg 04/18/20 14:00 04/20/20 08:44 Valproic Acid (As Sodium Salt) PO 250 mg DAILY SILVINA Administration Ondansetron HCl 4 mg 04/17/20 22:00 Ondansetron Hcl 4 Mg Tablet PO Q6H PRN Nausea / Vomiting Quetiapine Fumarate 12.5 mg 04/18/20 21:00 04/19/20 20:36 Quetiapine Fumarate 25 Mg Tablet PO 12.5 mg BEDTIME SILVINA Administration Sodium Chloride 1 syr 04/17/20 19:00 04/17/20 19:31 0.9% Sodium Chloride 10 Ml Disp.Syrin IVF 1 syr PRN PRN Administration To flush IV Trimethoprim/Sulfamethoxazole 1 tab 04/19/20 12:00 04/20/20 08:43 Sulfamethoxazole/Trimethoprim 800/160 Mg Tablet PO 04/22/20 11:59 1 tab Q12HR SILVINA Administration Discontinued Medications Generic Name Dose Route Start Last Admin Trade Name Freq PRN Reason Stop Dose Admin Aspirin 81 mg 04/18/20 09:00 04/18/20 09:37 Aspirin 81 Mg Tab.Chew PO 81 mg DAILY SILVINA Administration Sodium Chloride 1,000 mls @ 500 mls/hr 04/17/20 19:00 04/17/20 19:31 Sodium Chloride IV 04/17/20 20:59 500 mls/hr BOLUS STA Administration Aztreonam 1 gm/ Sodium 50 mls @ 75 mls/hr 04/18/20 23:30 04/18/20 00:46 Chloride IV 04/21/20 23:29 75 mls/hr Q12HR SILVINA Administration Levofloxacin/Dextrose 500 mg in 100 mls @ 100 mls/hr 04/18/20 09:00 04/19/20 11:42 Levaquin 500 Mg/100 Ml D5w IV 04/21/20 08:59 Not Given DAILY SILVINA Lidocaine HCl 10 ml 04/17/20 20:05 04/17/20 20:40 Lidocaine 10 Ml Jel.Pf.Jai (Urojet) MUCOUSMEMB 04/17/20 20:06 Not Given ONCE STA Non-Formulary Medication 250 mg 04/18/20 14:00 Valproic Acid (As Sodium Salt) PO DAILY SILVINA Trimethoprim/Sulfamethoxazole 1 tab 04/19/20 12:00 04/19/20 12:23 Sulfamethoxazole/Trimethoprim 800/160 Mg Tablet PO 04/22/20 11:59 Not Given Q12HR [facility] Vital Signs: Temp Pulse Resp BP Pulse Ox 04/17/20 18:23 98.8 F 72 20 138/58 L 93 L <CHRISTIANNE CHRISTIE MD - Last Filed: 04/17/20 21:57> Course Orders, Labs, Meds: Lab Review 04/17/20 04/17/20 04/17/20 19:17 19:17 19:17 WBC 11.86 H RBC 3.26 L Hgb 11.4 L Hct 33.6 L MCV 103.1 H MCH 35.0 H MCHC 33.9 RDW Coeff of [place] 13.2 Plt Count 175 Immature Gran % (Auto) 0.4 Neut % (Auto) 82.4 H Lymph % (Auto) 7.9 L Trigg % (Auto) 8.8 Eos % (Auto) 0.3 Baso % (Auto) 0.2 Neut # (Auto) 9.8 H Lymph # (Auto) 0.9 Trigg # (Auto) 1.0 Eos # (Auto) 0.0 Baso # (Auto) 0.0 Immature Gran # (Auto) 0.1 Sodium 136.0 Potassium 4.11 Chloride 99.9 Carbon Dioxide 29.2 Anion Gap 11.01 BUN 19.0 H Creatinine 0.60 Estimated GFR (MDRD) 95.00 BUN/Creatinine Ratio 31.66 Glucose 142.6 H Lactic Acid Calcium 9.11 Magnesium 1.62 Iron TIBC % Saturation Total Bilirubin 0.58 AST 32.5 ALT 11.3 Alkaline Phosphatase 67.3 Troponin I 0.015 Total Protein 6.82 Albumin 3.15 L Globulin 3.67 Albumin/Globulin Ratio 0.85 Vitamin B12 Procalcitonin < 0.05 Free T4 Urine Color Urine Clarity Urine pH Ur Specific [place] Urine Protein Urine Glucose (UA) Urine Ketones Urine Blood Urine Nitrite Urine Bilirubin Urine Urobilinogen Ur Leukocyte Esterase Urine Microscopic RBC Urine Microscopic WBC Ur Squamous Epith Cells Urine Bacteria Valproic Acid 04/17/20 04/17/20 04/17/20 19:17 19:17 20:35 WBC RBC Hgb Hct MCV MCH MCHC RDW Coeff of Courtney Plt Count Immature Gran % (Auto) Neut % (Auto) Lymph % (Auto) [place] % (Auto) Eos % (Auto) Baso % (Auto) Neut # (Auto) Lymph # (Auto) Trigg # (Auto) Eos # (Auto) Baso # (Auto) Immature Gran # (Auto) Sodium Potassium Chloride Carbon Dioxide Anion Gap BUN Creatinine Estimated GFR (MDRD) BUN/Creatinine Ratio Glucose Lactic Acid 1.34 Calcium Magnesium Iron 21.9 L TIBC 246 L % Saturation 9 Total Bilirubin AST ALT Alkaline Phosphatase Troponin I Total Protein Albumin Globulin Albumin/Globulin Ratio Vitamin B12 962 H Procalcitonin Free T4 1.70 Urine Color Yellow Urine Clarity Slightly Urine pH 6.0 Ur Specific [place] 1.025 Urine Protein 1+ H Urine Glucose (UA) Negative Urine Ketones 1+ H Urine Blood Trace-intact H Urine Nitrite Positive H Urine Bilirubin Negative Urine Urobilinogen 1.0 H Ur Leukocyte Esterase 3+ H Urine Microscopic RBC 10-20 Urine Microscopic WBC Tntc Ur Squamous Epith Cells 5-10 Urine Bacteria 3+ Valproic Acid 18.15 L Orders Category Date Time Status ADMIT PATIENT INPATIENT .TO MEDSURG (NON-MONITORED ADMISSION 04/17/20 21:57 Active BED) EKG-(ED ONLY) Stat CARDIO 04/17/20 18:45 Completed ACTIVITY .Complete BR CARE 04/17/20 21:57 Active INTAKE & OUTPUT Q8HR CARE 04/17/20 21:58 Active VITAL SIGNS Q8HR CARE 04/17/20 21:58 Active ED CATHETER INSERTION AND CARE .ONCE EMERGENCY 04/17/20 20:05 Active IV [ED IV/MEDIPORT/POWERPORT] .ONCE EMERGENCY 04/17/20 19:00 Active BLOOD CULTURE (ED ONLY) Stat LAB 04/17/20 19:10 Results CBC W/ AUTO DIFF DAILY@0600 LAB 04/18/20 08:25 Completed CBC W/ AUTO DIFF DAILY@0600 LAB 04/19/20 06:52 Completed CBC W/ AUTO DIFF Stat LAB 04/17/20 19:17 Completed CMP [COMPREHENSIVE METABOLIC PANEL] Stat LAB 04/17/20 19:17 Completed COMPREHENSIVE METABOLIC PANEL DAILY@0600 LAB 04/18/20 08:25 Completed COMPREHENSIVE METABOLIC PANEL DAILY@0600 LAB 04/19/20 06:52 Completed FREE T4 (FREE THYROXINE) Stat LAB 04/17/20 19:17 Completed IRON AND TIBC Stat LAB 04/17/20 19:17 Completed LACTIC ACID Stat LAB 04/17/20 19:17 Completed MAGNESIUM Stat LAB 04/17/20 19:17 Completed PROCALCITONIN Stat LAB 04/17/20 19:17 Completed TROPONIN I Stat LAB 04/17/20 19:17 Completed UA [URINALYSIS C & S IF INDICATED] Stat LAB 04/17/20 20:35 Completed URINE CULTURE Stat LAB 04/17/20 20:35 Completed VALPORIC ACID (DEPAKENE) Stat LAB 04/17/20 19:17 Completed VITAMIN B12 Stat LAB 04/17/20 19:17 Completed 0.9 % Sodium Chloride [Saline Flush] MEDS 04/17/20 19:00 Active 1 syr IVF PRN PRN Acetaminophen [Tylenol] MEDS 04/17/20 22:00 Active 1,000 mg PO Q6H PRN Aspirin [Aspirin Chewable] MEDS 04/18/20 09:00 Discontinued 81 mg PO DAILY Aztreonam [Azactam] 1 gm MEDS 04/18/20 23:30 Discontinued 0.9 % Sodium Chloride [Sodium Chloride] 50 ml IV Q12HR Bisacodyl [Dulcolax] MEDS 04/17/20 22:00 Active 10 mg RC DAILY PRN Clonidine HCl [Catapres] MEDS 04/18/20 09:00 Active 0.1 mg PO BID Docusate Sodium [Colace] MEDS 04/18/20 09:00 Active 100 mg PO BID Enoxaparin Sodium [Lovenox] MEDS 04/18/20 09:00 Active 40 mg SUBCUT DAILY Escitalopram Oxalate [Lexapro] MEDS 04/18/20 09:00 Active 20 mg PO DAILY Levothyroxine Sodium [Synthroid] MEDS 04/18/20 06:30 Active 50 mcg PO 0630 Lidocaine (Uro-Jet) [Uro-Jet] MEDS 04/17/20 20:05 Discontinued 10 ml MUCOUSMEMB ONCE STA Ondansetron HCl [Zofran Tab] MEDS 04/17/20 22:00 Active 4 mg PO Q6H PRN Quetiapine Fumarate [Seroquel] MEDS 04/18/20 21:00 Active 12.5 mg PO BEDTIME Sodium Chloride 0.9% [Sodium Chloride] 1,000 ml MEDS 04/17/20 22:00 Active IV 75 mls/hr Sodium Chloride 0.9% [Sodium Chloride] 1,000 ml MEDS 04/17/20 19:00 Discontinued IV BOLUS melatonin MEDS 04/18/20 21:00 Active 3 mg PO BEDTIME RESUSCITATION STATUS Routine OTHERS 04/17/20 21:[address] CHEST W/O CONTRAST Stat RADS 04/17/20 20:[address] HEAD W/O CONTRAST Stat RADS 04/17/20 18:59 Completed Medications Generic Name Dose Route Start Last Admin Trade Name Brian PRN Reason Stop Dose Admin Acetaminophen 1,000 mg 04/17/20 22:00 04/18/20 09:37 Acetaminophen 500 Mg Tablet PO 1,000 mg Q6H PRN Administration Mild Pain Aspirin 81 mg 04/19/20 08:30 04/20/20 08:43 Aspirin 81 Mg Tab.Chew PO 81 mg DAILYWM SILVINA Administration Bisacodyl 10 mg 04/17/20 22:00 Bisacodyl 10 Mg Supp.Rect RC DAILY PRN Constipation Clonidine 0.1 mg 04/18/20 09:00 04/20/20 08:43 Clonidine Hcl 0.1 Mg Tablet PO 0.1 mg BID SILVINA Administration Docusate Sodium 100 mg 04/18/20 09:00 04/20/20 08:43 Docusate Sodium 100 Mg Capsule PO 100 mg BID SILVINA Administration Enoxaparin Sodium 40 mg 04/18/20 09:00 04/19/20 08:33 Enoxaparin Sodium 40 Mg/0.4 Ml Syr SUBCUT 40 mg DAILY SILVINA Administration Escitalopram Oxalate 20 mg 04/18/20 09:00 04/20/20 08:43 Escitalopram Oxalate 10 Mg Tablet PO 20 mg DAILY SILVINA Administration Sodium Chloride 1,000 mls @ 75 mls/hr 04/17/20 22:00 04/19/20 22:08 Sodium Chloride IV Not Given .[id number] SILVINA Aztreonam 1 gm/ Sodium 50 mls @ 75 mls/hr 04/18/20 09:00 04/20/20 08:44 Chloride IV 04/21/20 08:59 75 mls/hr Q12HR SILVINA Administration Levothyroxine Sodium 50 mcg 04/18/20 06:30 04/20/20 06:07 Levothyroxine Sodium 50 Mcg Tablet PO 50 mcg 0630 SILVINA Administration Non-Formulary Medication 3 mg 04/18/20 21:00 04/19/20 20:37 Melatonin PO 3 mg BEDTIME SILVINA Administration Non-Formulary Medication 500 mg 04/18/20 21:00 04/19/20 20:37 Valproic Acid (As Sodium Salt) PO 500 mg BEDTIME SILVINA Administration Non-Formulary Medication 250 mg 04/18/20 14:00 04/20/20 08:44 Valproic Acid (As Sodium Salt) PO 250 mg DAILY SILVINA Administration Ondansetron HCl 4 mg 04/17/20 22:00 Ondansetron Hcl 4 Mg Tablet PO Q6H PRN Nausea / Vomiting Quetiapine Fumarate 12.5 mg 04/18/20 21:00 04/19/20 20:36 Quetiapine Fumarate 25 Mg Tablet PO 12.5 mg BEDTIME SILVINA Administration Sodium Chloride 1 syr 04/17/20 19:00 04/17/20 19:31 0.9% Sodium Chloride 10 Ml Disp.Syrin IVF 1 syr PRN PRN Administration To flush IV Trimethoprim/Sulfamethoxazole 1 tab 04/19/20 12:00 04/20/20 08:43 Sulfamethoxazole/Trimethoprim 800/160 Mg Tablet PO 04/22/20 11:59 1 tab Q12HR SILVINA Administration Discontinued Medications Generic Name Dose Route Start Last Admin Trade Name Freq PRN Reason Stop Dose Admin Aspirin 81 mg 04/18/20 09:00 04/18/20 09:37 Aspirin 81 Mg Tab.Chew PO 81 mg DAILY SILVINA Administration Sodium Chloride 1,000 mls @ 500 mls/hr 04/17/20 19:00 04/17/20 19:31 Sodium Chloride IV 04/17/20 20:59 500 mls/hr BOLUS STA Administration Aztreonam 1 gm/ Sodium 50 mls @ 75 mls/hr 04/18/20 23:30 04/18/20 00:46 Chloride IV 04/21/20 23:29 75 mls/hr Q12HR SILVINA Administration Levofloxacin/Dextrose 500 mg in 100 mls @ 100 mls/hr 04/18/20 09:00 04/19/20 11:42 Levaquin 500 Mg/100 Ml D5w IV 04/21/20 08:59 Not Given DAILY SILVINA Lidocaine HCl 10 ml 04/17/20 20:05 04/17/20 20:40 Lidocaine 10 Ml Jel.Pf.Jai (Urojet) MUCOUSMEMB 04/17/20 20:06 Not Given ONCE STA Non-Formulary Medication 250 mg 04/18/20 14:00 Valproic Acid (As Sodium Salt) PO DAILY SILVINA Trimethoprim/Sulfamethoxazole 1 tab 04/19/20 12:00 04/19/20 12:23 Sulfamethoxazole/Trimethoprim 800/160 Mg Tablet PO 04/22/20 11:59 Not Given Q12HR SILVINA Vital Signs: Temp Pulse Resp BP Pulse Ox 04/17/20 18:23 98.8 F 72 20 138/58 L 93 L Discharge Plan Discharge Patient Disposition: ADMITTED INPATIENT Discharge Problem: Altered level of consciousness, Dementia, Hypothyroidism ED Provider: CHRISTIANNE CHRISTIE Condition: Stable <CHRISTIANNE MARIE DO - Last Filed: 04/20/20 08:45> Physician Progress Note: []
[2020-04-17] MEDS ORDERED: SODIUM CHLORIDE 1,000 ML IV STA (19:00)
[2020-04-17 19:17] LABS: BASOPHILS % (AUTO) 0.2 % (0.0-3.0); EOSINOPHILS % (AUTO) 0.3 % (0.0-7.0); HEMATOCRIT 33.6 % (37.0-47.0); HEMOGLOBIN 11.4 g/dl (12.0-16.0); IMMATURE GRANULOCYTE # (AUTO) 0.1 (0.0-1.0); IMMATURE GRANULOCYTE % (AUTO) 0.4 % (0.0-5.0); LYMPHOCYTES # (AUTO) 0.9 K/uL (0.60-3.4); LYMPHOCYTES % (AUTO) 7.9 (10.0-50.0); MEAN CORPUSCULAR HGB CONC 33.9 (31.8-35.4); MEAN CORPUSCULAR VOLUME 103.1 fl (81.0-99.0); MONOCYTES % (AUTO) 8.8 (0-10); NEUTROPHILS # (AUTO) 9.8 K/ul (2.0-6.9); NEUTROPHILS % (AUTO) 82.4 % (42.2-75.2); PLATELET COUNT 175 10^3/uL (140-440); RDW COEFFICIENT OF VARIATION 13.2 % (11.6-14.8); RED BLOOD COUNT 3.26 10^6/ul (4.20-5.40); WHITE BLOOD COUNT 11.86 K/ul (4.6-10.2)
[2020-04-17 19:30] LABS: ALANINE AMINOTRANSFERASE 11.3 U/L (0-35); ALBUMIN 3.15 g/dL (3.5-5.0); ALKALINE PHOSPHATASE 67.3 U/L (53-141); ASPARTATE AMINO TRANSFERASE 32.5 U/L (14-36); BILIRUBIN,TOTAL 0.58 mg/dL (0.2-1.3); CALCIUM 9.11 mg/dL (8.4-10.2); CARBON DIOXIDE 29.2 mmol/L (22-30.0); CHLORIDE 99.9 mmol/L (98-107); CREATININE 0.6 mg/dL (0.60-1.30); GLUCOSE 142.6 mg/dL (74-106); MAGNESIUM 1.62 mg/dL (1.6-2.3); POTASSIUM 4.11 mmol/L (3.5-5.1); TOTAL PROTEIN 6.82 g/dL (6.3-8.2)
[2020-04-17 19:34] LABS: IRON 21.9 ug/dL (37-170)
[2020-04-17 19:39] LABS: VALPORIC ACID (DEPAKENE) 18.15 ug/mL (50.00-120.0)
[2020-04-17 19:42] LABS: TROPONIN I 0.015 ng/ml (0.0000-0.120)
[2020-04-17] MEDS ORDERED: URO-JET MUCOUSMEMB STA (20:05)
--- NOTE | 2020-04-17 20:27 | CT ---
EXAM: CT brain without contrast HISTORY: Reduced mental functioning TECHNIQUE: Multi-slice sequential. Coronal and sagittal reformations were performed. COMPARISON: 08/18/2019 FINDINGS: There is no acute intracranial hemorrhage, extraxial fluid collection, mass affect, or midlineshift. Right occipital lobe encephalomalacia appears unchanged. There is moderate to severe diffuse sulcal prominence. Ventriculomegaly appears unchanged. Periventricular white matter hypodensity is seen. Intracranial atherosclerosis is present. The basal cisterns are patent. No large vascular territor y area of hypodensity is seen within the brain. The calvarium is unremarkable. Visualized paranasal sinuses are clear. Mastoid air cells are clear. IMPRESSION: 1. No acute intracranial hemorrhage. 2. Unchanged atrophy, right occipital lobe encephalomalacia, ventriculomegaly, and small vessel isch emic disease.
--- NOTE | 2020-04-17 20:32 | CT ---
EXAM: CT chest without contrast HISTORY: Change in mental status TECHNIQUE: Multi-slice transaxial helical. Coronal and sagital reformations were performed. COMPARISON: None FINDINGS: The heart is normal in size. Calcified plaques are seen within the thoracic aorta as well as the cor onary arteries. No mediastinal adenopathy is seen. No axillary adenopathy is seen. Multiple puncta te hyperdensities are seen within the right abdomen of unknown etiology. Examination is also limited secondary to beam-hardening artifact related to the patient's arms. Bones appear diffusely deminera lized. Mild thoracic spondylosis is seen. Accentuated thoracic kyphosis is seen. Minimal dependent atelectasis is seen within the lung bases. Biapical scarring is seen. Minimal dependent opacities in the left upper lung adjacent to the major fissure is seen, most likely related to dependent atelec tasis. No focal airspace consolidation or pleural effusion is seen. IMPRESSION: 1. No acute cardiopulmonary findings. 2. Dependent atelectasis. 3. Atherosclerosis including coronary disease. 4. Other chronic/senescent findings as detailed above.
[2020-04-17 20:46] LABS: BILIRUBIN,URINE Negative (NEGATIVE); CLARITY,URINE Slightly (CLEAR); COLOR,URINE Yellow (YELLOW); GLUCOSE, URINE (UA) Negative (NEGATIVE); KETONES,URINE 1+ (NEGATIVE); LEUKOCYTE ESTERASE ,URINE 3+ (NEGATIVE); NITRITE,URINE Positive (NEGATIVE); PROTEIN,URINE 1+ (NEGATIVE); URINE, BLOOD Trace-intact (NEGATIVE)
[2020-04-17 20:52] LABS: BACTERIA,URINE 3+ (NOT PRESENT); URINE WBC, MICROSCOPIC TNTC (0-2)
[2020-04-17 20:54] LABS: FREE T4 (FREE THYROXINE) 1.7 ng/dL (0.78-2.19)
[2020-04-17] MEDS ORDERED: TYLENOL PO PRN (22:00)
[2020-04-17] MEDS ORDERED: DULCOLAX RC PRN (22:00)
[2020-04-17] MEDS ORDERED: ZOFRAN TAB PO PRN (22:00)
[2020-04-17] MEDS: SODIUM CHLORIDE 1,000 ML IV SCH (23:09)
[2020-04-18] MEDS ORDERED: AZACTAM ONE (00:35)
[2020-04-18 02:09] VITALS: BMI 21.3
[2020-04-18] MEDS: SYNTHROID PO SCH (05:57)
[2020-04-18 08:29] LABS: BASOPHILS % (AUTO) 0.4 % (0.0-3.0); EOSINOPHILS # (AUTO) 0.1 K/ul (0.0-0.7); HEMATOCRIT 32.8 % (37.0-47.0); HEMOGLOBIN 10.8 g/dl (12.0-16.0); IMMATURE GRANULOCYTE % (AUTO) 0.2 % (0.0-5.0); LYMPHOCYTES # (AUTO) 2.2 K/uL (0.60-3.4); LYMPHOCYTES % (AUTO) 22.2 (10.0-50.0); MEAN CORPUSCULAR HEMOGLOBIN 34.7 pg (27.0-31.0); MEAN CORPUSCULAR HGB CONC 32.9 (31.8-35.4); MEAN CORPUSCULAR VOLUME 105.5 fl (81.0-99.0); MONOCYTES # (AUTO) 1.5 K/uL (0.4-2.0); NEUTROPHILS % (AUTO) 60.5 % (42.2-75.2); PLATELET COUNT 148 10^3/uL (140-440); RDW COEFFICIENT OF VARIATION 13.4 % (11.6-14.8); RED BLOOD COUNT 3.11 10^6/ul (4.20-5.40); WHITE BLOOD COUNT 9.84 K/ul (4.6-10.2)
[2020-04-18 08:41] LABS: ALBUMIN 2.77 g/dL (3.5-5.0); ASPARTATE AMINO TRANSFERASE 25.3 U/L (14-36); BILIRUBIN,TOTAL 0.56 mg/dL (0.2-1.3); BLOOD UREA NITROGEN 16.9 mg/dL (7-17); CALCIUM 8.56 mg/dL (8.4-10.2); CHLORIDE 105.3 mmol/L (98-107); CREATININE 0.55 mg/dL (0.60-1.30); GLUCOSE 88.1 mg/dL (74-106); POTASSIUM 4.16 mmol/L (3.5-5.1); TOTAL PROTEIN 6.21 g/dL (6.3-8.2)
[2020-04-18 08:45] LABS: MONOCYTES % (AUTO) 15.7 (0-10)
[2020-04-18] MEDS ORDERED: ASPIRIN CHEWABLE PO SCH (09:00)
[2020-04-18] MEDS ORDERED: VALPROIC ACID 250 MG/5 ML PO SCH (09:00)
[2020-04-18] MEDS: AZACTAM 1 GM in SODIUM CHLORIDE 50 ML IV SCH ×2 (09:36→21:10)
[2020-04-18] MEDS: LEXAPRO PO SCH (09:37)
[2020-04-18] MEDS: LOVENOX SUBCUT SCH (09:37)
[2020-04-18] MEDS: CATAPRES PO SCH ×2 (09:37→21:10)
[2020-04-18] MEDS: COLACE PO SCH ×2 (09:37→21:10)
--- NOTE | 2020-04-18 10:39 | PCM.PROG ---
Attending Provider: ATTENDING PROVIDER: Dr. RANDA WHITTAKER DATE OF SERVICE: 04/18/20 SUBJECTIVE: This 85 year old /WHITE F was hospitalized 04/17/20 with change in mental status and confusion. The patient had urinary tract infection. She is being treated with Azactam and added Levaquin. Urine culture showed gram negative cocci. REVIEW OF SYSTEMS: CONSTITUTIONAL: No night sweats. No fatigue, malaise, lethargy. No fever or chills. HEENT: Eyes: No visual changes. No eye pain. No eye discharge. ENT: No runny nose. No epistaxis. No sinus pain. No odynophagia. No congestion. RESPIRATORY: No cough, no congestion. No hemoptysis. No shortness of breath. CARDIOVASCULAR: No angina symptoms. No CHF symptoms. No atypical chest pain for CAD. No palpitations. No orthopnea.. GASTROINTESTINAL: No abdominal pain. No nausea or vomiting. No diarrhea or constipation. No hematemesis. No hematochezia. GENITOURINARY: No urgency. No frequency. No dysuria. No hematuria. No obstructiv e symptoms. No discharge. No pain. No significant abnormal bleeding. MUSCULOSKELETAL: No musculoskeletal pain; no joint swelling. NEUROLOGICAL: Awake, alert, confused and unable to give history. No headache. No neck pain. No syncope. No seizures. No dizziness. PSYCHIATRIC: Not anxious. No depression. No suicidal thoughts. No homicidal thoughts. SKIN: No rash. No lesions. No wounds. ENDOCRINE: No unexplained weight loss. No weight gain. HEMATOLOGIC/LYMPHATIC: No anemia. No purpura. No petechiae. No prolonged or excessive bleeding. No palpable lymph nodes. PHYSICAL EXAMINATION: GENERAL: The patient is awake, alert , lying in bed in no distress. VITAL SIGNS: Temperature 97.9 F, Pulse 67, Respiratory Rate 18, BP 131/63, Pulse Ox 98% HEENT: Head normocephalic, atraumatic. Eyes: Extraocular muscles are intact. Pupils are equal, round and reactive to light and accommodation. Ears: No lesions. Nose appeared normal. Throat: No exudate or erythema. NECK: Supple. No JVD, no carotid bruit. No lymphadenopathy or thyromegaly. LUNGS: Clear to auscultation. Percussion note normal. Chest symmetrical. HEART: S1, S2, no S3. No murmurs. No cyanosis or clubbing. No ascites. Pulses: Dorsalis pedis and posterior tibial pulses +1 to +2 both sides. ABDOMEN: Soft. Non-tender. Bowel sounds active. No CVA tenderness. No mass felt. EXTREMITIES: No edema. Full range of motion of all extremities, equal. The patient is not able to feed herself and not able to walk and requires help for all activity of daily living from [facility]. NEUROLOGIC: No focal deficit. Cranial nerves II through XII are grossly intact. No headache, no double vision or headache. SKIN: Warm and dry. Intact. Turgor-normal. Mucous membranes dry. LYMPHATIC: No palpable lymph nodes/no lymphedema. MUSCULOSKELETAL: Normal joints with no swelling. Muscle tone is normal. LAB REVIEW: 04/17/20 19:17 04/17/20 19:17 04/17/20 20:35: Urine Color Yellow, Urine Clarity Slightly, Urine pH 6.0, Ur Specific [place] 1.025, Urine Protein 1+ H, Urine Glucose (UA) Negative, Urine Ketones 1+ H, Urine Blood Trace-intact H, Urine Nitrite Positive H, Urine Bilirubin Negative, Urine Urobilinogen 1.0 H, Ur Leukocyte Esterase 3+ H, Urine Microscopic RBC 10-20, Urine Microscopic WBC Tntc, Ur Squamous Epith Cells 5-10, Urine Bacteria 3+ 04/17/20 19:17: Iron 21.9 L, TIBC 246 L, % Saturation 9, Vitamin B12 962 H, Free T4 1.70, Valproic Acid 18.15 L 04/17/20 19:17: Lactic Acid 1.34 04/17/20 19:17: Procalcitonin < 0.05 04/17/20 19:17: Sodium 136.0, Potassium 4.11, Chloride 99.9, Carbon Dioxide 29.2, Anion Gap 11.01, BUN 19.0 H, Creatinine 0.60, Estimated GFR (MDRD) 95.00, BUN/Creatinine Ratio 31.66, Glucose 142.6 H, Calcium 9.11, Magnesium 1.62, Total Bilirubin 0.58, AST 32.5, ALT 11.3, Alkaline Phosphatase 67.3, Troponin I 0.015, Total Protein 6.82, Albumin 3.15 L, Globulin 3.67, Albumin/Globulin Ratio 0.85 04/17/20 19:17: WBC 11.86 H, RBC 3.26 L, Hgb 11.4 L, Hct 33.6 L, MCV 103.1 H, MCH 35.0 H, MCHC 33.9, RDW Coeff of Courtney 13.2, Plt Count 175, Immature Gran % (Auto) 0.4, Neut % (Auto) 82.4 H, Lymph % (Auto) 7.9 L, [place] % (Auto) 8.8, Eos % (Auto) 0.3, Baso % (Auto) 0.2, Neut # (Auto) 9.8 H, Lymph # (Auto) 0.9, [place] # (Auto) 1.0, Eos # (Auto) 0.0, Baso # (Auto) 0.0, Immature Gran # (Auto) 0.1 ASSESSMENT: Please see below. 1. UTI, gram negative cocci 2. Dehydration 3. Dementia PLAN: 1. Given IV Levaquin and Azactam 2. IV fluids 3. Monitor kidney function 4. CBC Plan and coordination of the patient's care discussed in the presence of [employer] Engineer and nurse. CONDITION: Stable SCRIBED BY: Rk VALERIO scribed while in presence of service performed by Dr. RANDA WHITTAKER on 04/18/20 ([id number])
[2020-04-18] MEDS: LEVAQUIN 500 MG/100 ML D5W 500 MG/100 ML BAG IV SCH (10:47)
--- NOTE | 2020-04-18 13:09 | PN ---
DATE OF SERVICE: 04/17/20 SUBJECTIVE: The patient was sent from the half-way with change in the mental status. The patient's workup revealed that the patient very likely has urinary tract infection with some dehydration. The patient is going to be hospitalized on IV antibiotics. Urine cultures to be sent. The patient is DNR. TIME SPENT: More than 30 minutes. Plan and coordination of the patient's care discussed in the presence of nurse. MALCOLM
[2020-04-18] MEDS: SODIUM CHLORIDE 1,000 ML IV SCH (16:02)
[2020-04-18] MEDS ORDERED: DEPAKOTE PO SCH (21:00)
[2020-04-18] MEDS: MELATONIN 3 MG PO SCH (21:10)
[2020-04-18] MEDS: SEROQUEL PO SCH (21:10)
[2020-04-18] MEDS ORDERED: AZACTAM 1 GM in SODIUM CHLORIDE 50 ML IV SCH (23:30)
[2020-04-19] MEDS: SYNTHROID PO SCH (06:01)
[2020-04-19] MEDS: SODIUM CHLORIDE 1,000 ML IV SCH ×3 (06:28→22:08)
[2020-04-19 07:07] LABS: BASOPHILS % (AUTO) 0.4 % (0.0-3.0); EOSINOPHILS # (AUTO) 0.2 K/ul (0.0-0.7); EOSINOPHILS % (AUTO) 1.9 % (0.0-7.0); HEMATOCRIT 31.7 % (37.0-47.0); HEMOGLOBIN 10.6 g/dl (12.0-16.0); IMMATURE GRANULOCYTE % (AUTO) 0.3 % (0.0-5.0); LYMPHOCYTES # (AUTO) 2.3 K/uL (0.60-3.4); MEAN CORPUSCULAR HEMOGLOBIN 34.3 pg (27.0-31.0); MEAN CORPUSCULAR HGB CONC 33.4 (31.8-35.4); MEAN CORPUSCULAR VOLUME 102.6 fl (81.0-99.0); MONOCYTES # (AUTO) 1.4 K/uL (0.4-2.0); MONOCYTES % (AUTO) 15.5 (0-10); NEUTROPHILS % (AUTO) 55.9 % (42.2-75.2); PLATELET COUNT 167 10^3/uL (140-440); RDW COEFFICIENT OF VARIATION 12.9 % (11.6-14.8); RED BLOOD COUNT 3.09 10^6/ul (4.20-5.40); WHITE BLOOD COUNT 9.01 K/ul (4.6-10.2)
[2020-04-19 07:19] LABS: ALBUMIN 2.63 g/dL (3.5-5.0); ALKALINE PHOSPHATASE 56.1 U/L (53-141); ASPARTATE AMINO TRANSFERASE 42.5 U/L (14-36); BILIRUBIN,TOTAL 0.47 mg/dL (0.2-1.3); BLOOD UREA NITROGEN 13.4 mg/dL (7-17); CALCIUM 8.39 mg/dL (8.4-10.2); CHLORIDE 104.9 mmol/L (98-107); CREATININE 0.69 mg/dL (0.60-1.30); GLUCOSE 89.8 mg/dL (74-106); POTASSIUM 3.53 mmol/L (3.5-5.1); SODIUM 136.9 mmol/L (134.5-145); TOTAL PROTEIN 6.02 g/dL (6.3-8.2)
[2020-04-19] MEDS: AZACTAM 1 GM in SODIUM CHLORIDE 50 ML IV SCH ×2 (08:30→20:37)
[2020-04-19] MEDS: CATAPRES PO SCH ×2 (08:32→20:36)
[2020-04-19] MEDS: COLACE PO SCH ×2 (08:32→20:36)
[2020-04-19] MEDS: LEXAPRO PO SCH (08:32)
[2020-04-19] MEDS: ASPIRIN CHEWABLE PO SCH (08:32)
[2020-04-19] MEDS: LOVENOX SUBCUT SCH (08:33)
[2020-04-19] MEDS: LEVAQUIN 500 MG/100 ML D5W 500 MG/100 ML BAG IV SCH (11:42)
[2020-04-19] MEDS ORDERED: BACTRIM DS 800/160 MG PO SCH (12:00)
[2020-04-19] MEDS: BACTRIM DS 800/160 MG PO SCH ×2 (12:22→20:36)
[2020-04-19] MEDS: SEROQUEL PO SCH (20:36)
[2020-04-19] MEDS: MELATONIN 3 MG PO SCH (20:37)
[2020-04-20] MEDS: SYNTHROID PO SCH (06:07)
[2020-04-20 06:53] LABS: BASOPHILS # (AUTO) 0.1 K/uL (0-0.2); BASOPHILS % (AUTO) 0.7 % (0.0-3.0); EOSINOPHILS # (AUTO) 0.3 K/ul (0.0-0.7); EOSINOPHILS % (AUTO) 4.6 % (0.0-7.0); HEMATOCRIT 31.6 % (37.0-47.0); HEMOGLOBIN 10.6 g/dl (12.0-16.0); IMMATURE GRANULOCYTE % (AUTO) 0.1 % (0.0-5.0); LYMPHOCYTES # (AUTO) 2.8 K/uL (0.60-3.4); LYMPHOCYTES % (AUTO) 40.2 (10.0-50.0); MEAN CORPUSCULAR HEMOGLOBIN 34.6 pg (27.0-31.0); MEAN CORPUSCULAR HGB CONC 33.5 (31.8-35.4); MEAN CORPUSCULAR VOLUME 103.3 fl (81.0-99.0); MONOCYTES # (AUTO) 0.9 K/uL (0.4-2.0); MONOCYTES % (AUTO) 12.1 (0-10); NEUTROPHILS % (AUTO) 42.3 % (42.2-75.2); PLATELET COUNT 164 10^3/uL (140-440); RED BLOOD COUNT 3.06 10^6/ul (4.20-5.40); WHITE BLOOD COUNT 7.01 K/ul (4.6-10.2)
[2020-04-20 07:05] LABS: ALANINE AMINOTRANSFERASE 15.2 U/L (0-35); ALBUMIN 2.49 g/dL (3.5-5.0); ALKALINE PHOSPHATASE 52.9 U/L (53-141); BILIRUBIN,TOTAL 0.35 mg/dL (0.2-1.3); BLOOD UREA NITROGEN 11.1 mg/dL (7-17); CALCIUM 8.46 mg/dL (8.4-10.2); CARBON DIOXIDE 26.5 mmol/L (22-30.0); CHLORIDE 107.7 mmol/L (98-107); CREATININE 0.62 mg/dL (0.60-1.30); GLUCOSE 81.3 mg/dL (74-106); POTASSIUM 3.54 mmol/L (3.5-5.1); TOTAL PROTEIN 5.82 g/dL (6.3-8.2)
[2020-04-20] MEDS: COLACE PO SCH ×2 (08:43→20:59)
[2020-04-20] MEDS: BACTRIM DS 800/160 MG PO SCH ×2 (08:43→21:00)
[2020-04-20] MEDS: ASPIRIN CHEWABLE PO SCH (08:43)
[2020-04-20] MEDS: CATAPRES PO SCH ×2 (08:43→21:00)
[2020-04-20] MEDS: LEXAPRO PO SCH (08:43)
[2020-04-20] MEDS: LOVENOX SUBCUT SCH (08:44)
[2020-04-20] MEDS: AZACTAM 1 GM in SODIUM CHLORIDE 50 ML IV SCH ×2 (08:44→20:59)
[2020-04-20] MEDS: SODIUM CHLORIDE 1,000 ML IV SCH (12:36)
[2020-04-20] MEDS: MELATONIN 3 MG PO SCH (20:59)
[2020-04-20] MEDS: SEROQUEL PO SCH (21:00)
[2020-04-21] MEDS: SODIUM CHLORIDE 1,000 ML IV SCH (01:34)
[2020-04-21 04:32] LABS: BASOPHILS % (AUTO) 0.4 % (0.0-3.0); EOSINOPHILS # (AUTO) 0.3 K/ul (0.0-0.7); EOSINOPHILS % (AUTO) 4.7 % (0.0-7.0); HEMATOCRIT 28.9 % (37.0-47.0); HEMOGLOBIN 9.5 g/dl (12.0-16.0); IMMATURE GRANULOCYTE % (AUTO) 0.4 % (0.0-5.0); LYMPHOCYTES # (AUTO) 2.4 K/uL (0.60-3.4); LYMPHOCYTES % (AUTO) 35.1 (10.0-50.0); MEAN CORPUSCULAR HEMOGLOBIN 34.4 pg (27.0-31.0); MEAN CORPUSCULAR HGB CONC 32.9 (31.8-35.4); MEAN CORPUSCULAR VOLUME 104.7 fl (81.0-99.0); MONOCYTES # (AUTO) 0.8 K/uL (0.4-2.0); MONOCYTES % (AUTO) 10.9 (0-10); NEUTROPHILS # (AUTO) 3.4 K/ul (2.0-6.9); NEUTROPHILS % (AUTO) 48.5 % (42.2-75.2); PLATELET COUNT 156 10^3/uL (140-440); RDW COEFFICIENT OF VARIATION 13.1 % (11.6-14.8); RED BLOOD COUNT 2.76 10^6/ul (4.20-5.40); WHITE BLOOD COUNT 6.96 K/ul (4.6-10.2)
[2020-04-21 04:47] LABS: ALBUMIN 2.37 g/dL (3.5-5.0); ALKALINE PHOSPHATASE 47.3 U/L (53-141); ASPARTATE AMINO TRANSFERASE 32.5 U/L (14-36); BILIRUBIN,TOTAL 0.27 mg/dL (0.2-1.3); BLOOD UREA NITROGEN 9.7 mg/dL (7-17); CALCIUM 8.08 mg/dL (8.4-10.2); CARBON DIOXIDE 26.3 mmol/L (22-30.0); CHLORIDE 109.9 mmol/L (98-107); CREATININE 0.6 mg/dL (0.60-1.30); GLUCOSE 79.6 mg/dL (74-106); POTASSIUM 3.7 mmol/L (3.5-5.1); SODIUM 138.6 mmol/L (134.5-145); TOTAL PROTEIN 5.3 g/dL (6.3-8.2)
[2020-04-21] MEDS: SYNTHROID PO SCH (06:05)
[2020-04-21] MEDS ORDERED: VALTREX PO SCH (09:00)
--- NOTE | 2020-04-21 09:06 | HP ---
DATE OF SERVICE: 04/18/20 REASON FOR HOSPITALIZATION/HISTORY OF PRESENT ILLNESS: 85-year-old white female who was brought into ER per EMS from [facility]. The snf noted difficulty swallowing and change in mentation. At baseline the patient is pleasantly confused. The patient was afebrile. White count was elevated. Urine was positive for nitrates and leukocytes, 3+ bacteria. The patient will be admitted for altered level of consciousness and UTI, dementia. Antibiotics will be ordered for further evaluation and management. 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 No night sweats. No malaise, lethargy. No fever or chills. HEENT: Eyes: No visual changes. No eye pain. No eye discharge. ENT: No runny nose. No epistaxis. No sinus pain. No sore throat. No ondynophagia. No ear pain. No congestion. RESPIRATORY: No cough, no congestion. No hemoptysis. No shortness of breath. CARDIOVASCULAR: No angina symptoms. No CHF symptoms. No atypical chest pain for CAD. No palpitations. No PND. No orthopnea. GASTROINTESTINAL: No abdominal pain. No nausea or vomiting. No diarrhea or constipation. No hematemesis. No hematochezia. GENITOURINARY: No urgency. No frequency. No dysuria. No hematuria. No obstructive symptoms. No discharge. No pain. No significant abnormal bleeding. MUSCULOSKELETAL: No musculoskeletal pain. No joint swelling. No arthritis. NEUROLOGICAL: No headache. No neck pain. No syncope. No seizures. No dizziness. PSYCHIATRIC: Not anxious. No depression. No suicidal thoughts. No homicidal thoughts. SKIN: No rash. No lesions. No wounds. ENDOCRINE: No unexplained weight loss. No weight gain. HEMATOLOGIC/LYMPHATIC: No anemia. No purpura. No petechiae. No prolonged or excessive bleeding. No palpable lymph nodes. PERSONAL/FAMILY/SOCIAL HISTORY: The patient is and lives in the snf. Son is power of associate attorney for health. The patient is DNR. She is dependent in all activities of daily living. She does get up to the wheelchair. MEDICATIONS: (HOME) Melatonin 3 mg p.o. bedtime Levothyroxine 50 mcg p.o. daily Bisacodyl 10 mg NH daily p.r.n. Aspirin 81 mg p.o. daily Acetaminophen 1,000 mg p.o. q.6h p.r.n. Quetiapine (Seroquel) 12.5 mg p.o. bedtime Escitalopram Oxalate (Lexapro) 20 mg p.o. daily Docusate Sodium 100 mg p.o. b.i.d. Cyanocobalamin 1,000 mcg monthly Clonidine 0.1 mg p.o. b.i.d. Ondansetron (Zofran) 4 mg p.o. q.6h p.r.n. Bisacodyl 10 mg NH daily p.r.n. Valproic Acid 500 mg p.o. bedtime Acetaminophen 650 mg NH q.4h p.r.n. Valproic Acid 250 mg p.o. daily ALLERGIES: ATORVASTATIN, PENICILLINS, (ANTIHYPERLIPIDEMICS), (DYES) PHYSICAL EXAMINATION: VITAL SIGNS: Temperature 98.8, pulse 72, respirations 20, BP 138/58. Pulse ox 93%. The patient is alert but not oriented. HEENT: Head normocephalic, atraumatic. Eyes: Extraocular muscles are intact. Pupils are equal, round and reactive to light and accommodation. Ears: No lesions. Nose appeared normal. Throat: No exudate or erythema. NECK: Supple. No JVD, no carotid bruit. No lymphadenopathy or thyromegaly. LUNGS: Diminished breath sounds. Clear to auscultation. Percussion note normal. Chest symmetrical. HEART: S1, S2, no S3. No murmur. No cyanosis or clubbing. No ascites. Pulses: Dorsalis pedis and posterior tibial pulses +1 to +2 bilaterally. ABDOMEN: Soft. Nontender. Bowel sounds active. No CVA tenderness. No mass felt. EXTREMITIES: No edema. Full range of motion of all extremities, equal. NEUROLOGIC: No focal deficit. Cranial nerves II through XII are grossly intact. No headache, no double vision or headache. SKIN: Not dry. Intact. Turgor - normal. LYMPHATIC: No palpable lymph nodes/no lymphedema. MUSCULOSKELETAL: Normal joints with no swelling. Muscle tone is normal. LABS: White blood cell count 11.86, hemoglobin 11.4, hematocrit 33.6, platelets 175. Sodium 136, potassium 4.11, BUN 19, creatinine 0.60, AST 32.5, ALT 11.3. UA nitrate positive. Leukocyte positive 3+. 3+ bacteria. CT of the head showed no acute intracranial hemorrhage. Unchanged atrophy right occipital lobe, encephalomacia, ventriculomegaly and small vessel ischemic disease. CT of the chest showed no acute cardiopulmonary findings, dependent atelectasis, atherosclerosis including coronary disease, other chronic significant findings as detailed. ASSESSMENT: 1. Change in mental status. 2. UTI. 3. Worsening dementia. 4. History of TIA vs CVA. 5. Hypertension. 6. Hypothyroidism. PLAN: 1. Admit as inpatient. 2. Routine telemetry. 3. CBC, CMP daily. 4. Continue home medications. 5. 02 at 1 to 2L/NC as needed. 6. Start IV antibiotics, Azactam and Levaquin. 7. Urine culture pending. 8. Fall precautions. 9. Continue DNR. The patient was seen and examined with Dr. Rey, plan was discussed. TIME SPENT: More than 70 minutes. [facility]ID HOSPITALCeasar
--- NOTE | 2020-04-21 09:36 | PCM.PROG ---
Attending Provider: ATTENDING PROVIDER: Dr. RANDA WHITTAKER This patient is seen with Sayra Barreto, Nurse Practitioner. DATE OF SERVICE: 04/21/20 SUBJECTIVE: This 85 year old /WHITE F was hospitalized 04/17/20. The patient is resting comfortably. WBC is improving. No fever. She will be seen by speech therapy today. REVIEW OF SYSTEMS: CONSTITUTIONAL: No night sweats. No fatigue, malaise, lethargy. No fever or chills. HEENT: Eyes: No visual changes. No eye pain. No eye discharge. ENT: No runny nose. No epistaxis. No sinus pain. No odynophagia. No congestion. RESPIRATORY: No cough, no congestion. No hemoptysis. No shortness of breath. CARDIOVASCULAR: No angina symptoms. No CHF symptoms. No atypical chest pain for CAD. No palpitations. No orthopnea.. GASTROINTESTINAL: No abdominal pain. No nausea or vomiting. No diarrhea or constipation. No hematemesis. No hematochezia. GENITOURINARY: No urgency. No frequency. No dysuria. No hematuria. No obstructive symptoms. No discharge. No pain. No significant abnormal bleeding. MUSCULOSKELETAL: No musculoskeletal pain; no joint swelling. Weakness. NEUROLOGICAL: Awake, alert, Confused. No headache. No neck pain. No syncope. No seizures. No dizziness. PSYCHIATRIC: Not anxious. No depression. No suicidal thoughts. No homicidal thoughts. SKIN: No rash. No lesions. No wounds. ENDOCRINE: No unexplained weight loss. No weight gain. HEMATOLOGIC/LYMPHATIC: No anemia. No purpura. No petechiae. No prolonged or excessive bleeding. No palpable lymph nodes. PHYSICAL EXAMINATION: GENERAL: The patient is awake, alert and oriented to person only, lying in bed in no distress. VITAL SIGNS: Temperature 98.3 F, Pulse 60, Respiratory Rate 16, BP 114/58, Pulse Ox 97% HEENT: Head normocephalic, atraumatic. Eyes: Extraocular muscles are intact. Pupils are equal, round and reactive to light and accommodation. Ears: No lesions. Nose appeared normal. Throat: No exudate or erythema. NECK: Supple. No JVD, no carotid bruit. No lymphadenopathy or thyromegaly. LUNGS: Diminished breath sounds. Clear to auscultation. Percussion note normal. Chest symmetrical. HEART: S1, S2, no S3. No murmurs. No cyanosis or clubbing. No ascites. Pulses: Dorsalis pedis and posterior tibial pulses +1 to +2 both sides. ABDOMEN: Soft. Non-tender. Bowel sounds active. No CVA tenderness. No mass felt. EXTREMITIES: No edema. Full range of motion of all extremities, equal. NEUROLOGIC: No focal deficit. Cranial nerves II through XII are grossly intact. No headache, no double vision or headache. SKIN: Not dry. Intact. Turgor-normal. LYMPHATIC: No palpable lymph nodes/no lymphedema. MUSCULOSKELETAL: Normal joints with no swelling. Muscle tone is normal. LAB REVIEW: 04/21/20 04:25 04/21/20 04:25 04/21/20 04:25: Sodium 138.6, Potassium 3.70, Chloride 109.9 H, Carbon Dioxide 26.3, Anion Gap 6.10, BUN 9.7, Creatinine 0.60, Estimated GFR (MDRD) 95.00, BU N/Creatinine Ratio 16.16, Glucose 79.6, Calcium 8.08 L, Total Bilirubin 0.27, AST 32.5, ALT 14.0, Alkaline Phosphatase 47.3 L, Total Protein 5.30 L, Albumin 2.37 L, Globulin 2.93, Albumin/Globulin Ratio 0.80 04/21/20 04:25: WBC 6.96, RBC 2.76 L, Hgb 9.5 L, Hct 28.9 L, MCV 104.7 H, MCH 34.4 H, MCHC 32.9, RDW Coeff of Courtney 13.1, Plt Count 156, Immature Gran % (Auto) 0.4, Neut % (Auto) 48.5, Lymph % (Auto) 35.1, [place] % (Auto) 10.9 H, Eos % (Auto) 4.7, Baso % (Auto) 0.4, Neut # (Auto) 3.4, Lymph # (Auto) 2.4, [place] # (Auto) 0 .8, Eos # (Auto) 0.3, Baso # (Auto) 0.0, Immature Gran # (Auto) 0.0 04/18/20 09:40: SARS-CoV-2 (PCR) Not detected ASSESSMENT: Please see below. 1. UTI e-coli 2. Dementia with behavioral disturbances 3. Dysphasia. PLAN: 1. Continue PO Bactrim 2. Stop Azactam 3. Speech evaluation 4. Stop IV fluids Plan and coordination of the patient's care discussed in the presence of Barista and nurse. SCRIBED BY: Eugenio VALERIOist scribed while in presence of service performed by Dr. Whittaker/Sayra Barreto APRN on 04/21/20 ([id number])
--- NOTE | 2020-04-21 09:51 | PN ---
DATE OF SERVICE: 04/19/20 SUBJECTIVE: 85-year-old white female hospitalized with urinary tract infection with worsening of mental condition. The patient is feeling a little better, more awake. She is still confused and sleepy. REVIEW OF SYSTEMS: CONSTITUTIONAL: No night sweats. No fatigue, malaise, lethargy. No fever or chills. HEENT: Eyes: No visual changes. No eye pain. No eye discharge. ENT: No runny nose. No epistaxis. No sinus pain. No sore throat. Still has a problem swallowing. No congestion. RESPIRATORY: No cough, no congestion. No hemoptysis. No shortness of breath. CARDIOVASCULAR: No angina symptoms. No CHF symptoms. No atypical chest pain for CAD. No palpitations. No PND. No orthopnea. GASTROINTESTINAL: No abdominal pain. No nausea or vomiting. No diarrhea or constipation. No hematemesis. No hematochezia. GENITOURINARY: No urgency. No frequency. No dysuria. No hematuria. No obstructive symptoms. No discharge. No pain. No significant abnormal bleeding. MUSCULOSKELETAL: No musculoskeletal pain; no joint swelling. NEUROLOGICAL: No headache. No neck pain. No syncope. No seizures. No dizziness. PSYCHIATRIC: Not anxious. No depression. No suicidal thoughts. No homicidal thoughts. SKIN: No rash. No lesions. No wounds. ENDOCRINE: No unexplained weight loss. No weight gain. HEMATOLOGIC/LYMPHATIC: No anemia. No purpura. No petechiae. No prolonged or excessive bleeding. No palpable lymph nodes. PHYSICAL EXAMINATION: VITAL SIGNS: Temperature 97.8, pulse 64, respiratory rate 18, blood pressure 130/62, pulse ox 97%. HEENT: Head normocephalic, atraumatic. Eyes: Extraocular muscles are intact. Pupils are equal, round and reactive to light and accommodation. Ears: No lesions. Nose appeared normal. Throat: No exudate or erythema. NECK: Supple. No JVD, no carotid bruit. No lymphadenopathy or thyromegaly. LUNGS: Decreased breath sounds but clear to auscultation. Percussion note normal. Chest symmetrical. HEART: S1, S2, no S3. No murmurs. No cyanosis or clubbing. No ascites. Pulses: Dorsalis pedis and posterior tibial pulses +1 to +2 bilaterally. ABDOMEN: Soft. Nontender. Bowel sounds active. No CVA tenderness. No mass felt. EXTREMITIES: No edema. Full range of motion of all extremities, equal. NEUROLOGIC: No focal deficit. Cranial nerves II through XII are grossly intact. No headache, no double vision or headache. SKIN: Not dry. Intact. Turgor - normal. LYMPHATIC: No palpable lymph nodes/no lymphedema. MUSCULOSKELETAL: Normal joints with no swelling. Muscle tone is normal. LABS: 04/18/20: Hemoglobin 10.8, hematocrit 32, WBC 9,800, normal differential. Creatinine 0.5, BUN 16, potassium 4.1 ASSESSMENT: 1. UTI, E. coli sensitive to Sulfa. PLAN: 1. Will discontinue Levaquin. 2. Will put her on Bactrim. 3. Continue Azactam. CONDITION: The patient has improved. TIME SPENT: More than 30 minutes. Plan and coordination of the patient's care discussed in the presence of nurse. MALCOLM
[2020-04-21] MEDS: CATAPRES PO SCH ×2 (10:10→20:10)
[2020-04-21] MEDS: ASPIRIN CHEWABLE PO SCH (10:10)
[2020-04-21] MEDS: LEXAPRO PO SCH (10:10)
[2020-04-21] MEDS: BACTRIM DS 800/160 MG PO SCH ×2 (10:11→20:10)
[2020-04-21] MEDS: COLACE PO SCH ×2 (10:11→20:10)
[2020-04-21] MEDS: LOVENOX SUBCUT SCH (10:26)
--- NOTE | 2020-04-21 11:21 | PN ---
DATE OF SERVICE: 04/20/20 SUBJECTIVE: 85-year-old white female hospitalized with UTI/E.coli. The patient is being treated with Bactrim and Azactam. She is wide awake. Son is present in the room. REVIEW OF SYSTEMS: CONSTITUTIONAL: No night sweats. No fatigue, malaise, lethargy. No fever or chills. HEENT: Eyes: No visual changes. No eye pain. No eye discharge. ENT: No runny nose. No epistaxis. No sinus pain. No sore throat. No odynophagia. No congestion. RESPIRATORY: No cough, no congestion. No hemoptysis. No shortness of breath. CARDIOVASCULAR: No angina symptoms. No CHF symptoms. No atypical chest pain for CAD. No palpitations. No PND. No orthopnea. GASTROINTESTINAL: No abdominal pain. No nausea or vomiting. No diarrhea or constipation. No hematemesis. No hematochezia. GENITOURINARY: No urgency. No frequency. No dysuria. No hematuria. No obstructive symptoms. No discharge. No pain. No significant abnormal bleeding. MUSCULOSKELETAL: No musculoskeletal pain; no joint swelling. NEUROLOGICAL: No headache. No neck pain. No syncope. No seizures. No dizziness. PSYCHIATRIC: Not anxious. No depression. No suicidal thoughts. No homicidal thoughts. SKIN: No rash. No lesions. No wounds. ENDOCRINE: No unexplained weight loss. No weight gain. HEMATOLOGIC/LYMPHATIC: No anemia. No purpura. No petechiae. No prolonged or excessive bleeding. No palpable lymph nodes. PHYSICAL EXAMINATION: VITAL SIGNS: Temperature 97.7, pulse 68, respiratory rate 16, blood pressure 142/70, pulse ox 99% on room air. HEENT: Head normocephalic, atraumatic. Eyes: Extraocular muscles are intact. Pupils are equal, round and reactive to light and accommodation. Ears: No lesions. Nose appeared normal. Throat: No exudate or erythema. NECK: Supple. No JVD, no carotid bruit. No lymphadenopathy or thyromegaly. LUNGS: Decreased breath sounds but clear to auscultation. Percussion note normal. Chest symmetrical. HEART: S1, S2, no S3. No murmurs. No cyanosis or clubbing. No ascites. Pulses: Dorsalis pedis and posterior tibial pulses +1 to +2 bilaterally. ABDOMEN: Soft. Nontender. Bowel sounds active. No CVA tenderness. No mass felt. EXTREMITIES: No edema. Full range of motion of all extremities, equal. NEUROLOGIC: No focal deficit. Cranial nerves II through XII are grossly intact. No headache, no double vision or headache. SKIN: Not dry. Intact. Turgor - normal. LYMPHATIC: No palpable lymph nodes/no lymphedema. MUSCULOSKELETAL: Normal joints with no swelling. Muscle tone is normal. LABS: Hemoglobin 10.6, hematocrit 31, WBC 7,000, normal differential. Creatinine 0.6, BUN 13, potassium 3.5. ASSESSMENT: 1. UTI, E. Coli being treated with Bactrim and Azactam. CONDITION: Improving/Stable. The patient is having problems swallowing and she has lost 15 to 20 lbs in the past few weeks. She is to do the swallowing study. Discussed with son and he agreed. TIME SPENT: More than 30 minutes. Plan and coordination of the patient's care discussed in the presence of nurse. MALCOLM
--- NOTE | 2020-04-21 16:24 | RS.BEDDYS ---
Subjective Date of Evaluation: 04/21/20 Diagnosis: UTI, dementia Current Level of Function: This 85 year old female was admitted due to confusion and poor appetite, that resulted in a UTI. Pt has a hx of dysphagia. SALICYLIC ACID BLENDER to evaluate pt at the bedside to determine safest and least restrictive diet and liquids. Current Diet: Puree and thin liquids. Current Subjective/complaints:: Pt spoke frequently to the SALICYLIC ACID BLENDER, however many of her utterances were tangential and did not complete a thought process. Pt did complain of a cold sore that is on her upper left lip. She also was confused and asking about her mother. Pt was cooperative for the SALICYLIC ACID BLENDER. Patient's Goals: To consume safest and least restrictive diet texture. General Information - General Denture Type: Not Applicable Ability to Follow Directions: Good Oral Expression Ability: Mild Impairment Oral-Facial Assessment - Dental/Labial Teeth Characteristics: Missing Teeth Comment: Teeth are tight and have alot of residue from meals. Oral care is needed. Lip Protrusion: Weak Lips Comment: Pt was guarded with labial movements due to cold sore. - Lingual Protrusion: Weak Retraction: Weak Tip Lateralization: Weak Repeated Tip Lateralization: Weak Tip Elevation: Weak Repeated Tip Elevation: Weak Comments: Pt also demonstrated reduced ROM with lingual movements as evidenced by poor lingual manipuation. Pt could not use lingual sweep on upper or bottom teeth. Lingual movements were restricted to front of oral cavity. This will cause pt to have residuals with all PO intake. Food Presentation - Solids Food Presented: Mechanical Soft (Via tejal presented by the SALICYLIC ACID BLENDER.) Behaviors/Comments: Pt took a bite of the tejal when the SALICYLIC ACID BLENDER presented it to her oral cavity. She had adequate timing with mastication. However, she had poor bolus control and bolus manipulation, as well as mild-moderate residuals through oral cavity. Pt had most of her residuals in bilateral sulci, which she could not clear independently. Pt has risk for food pocketing. - Liquids Liquid Presented: Thin (via open cup and straw presented by SALICYLIC ACID BLENDER) Behaviors/Comments: Pt had an audible swallow that was 'louder' than a typical audible swallow. She immediately initiated a swallow, then used multiple swallows. SALICYLIC ACID BLENDER is concerned that she has structural deficits or problems that may be causing the increased loudness with swallowing. Pt had poor pressure, which may attribute to some of the signs the SALICYLIC ACID BLENDER observed at the bedside. However, this pt is at risk for aspiration due to weakness with lingual surface and signs of possible structural deficits. Liquid Presented: [place] (Via straw) Behaviors/Comments: Pt consumed multiple sips via straw. Audible swallow was still observed with nectar, but coordination and timing of swallowing event was functional w/o overt s/s of aspiration. Pt may still have a risk for aspiration/penetration episodes. - Recommendations: Dysphagia Evaluation Dietary Recommendations: Dysphagia Pureed, [place]-thick liquids Comments:: [place] thick liquids need to be presented and taken away. Pt appears to consume large consecutive drinks and needs assistance to regulate drink size. Puree needs to be presented in a 1/2 teaspoon bite size to reduce residual build-up in oral cavity. Dysphagia Swallow Precautions/Strategies: Sitting Upright (90 deg), Liquids from Cup, Liquids from Straw, Small Bites and Sips, Alternate Liquids/Solids Comments:: SALICYLIC ACID BLENDER recommends 1:1 feeding to reduce risks for aspiration. Encourage safe swallow precautions. Monitor pt's lung sounds for increased congestion. - Summary Dysphagia Evaluation Summary: Pt presents with moderate-severe oropharyngeal dysphagia. She has a hx of dysphagia that resulted in puree diet texture. At this time, SALICYLIC ACID BLENDER warrants nectar thick liquids to decrease risk for aspiration. Pt appears with generalized weakness and poor ROM with labials and lingual function. Pharyngeal phase is affected with suspected decreased pressure and possible structural deficits vs physiology. Pt is at risk for aspiration. Further Therapy Indicated?: No Comments: Pt is expected to d/c back to long term where SALICYLIC ACID BLENDER can follow her case. Functional Reporting G Codes: n/a Severity Impairment Rationale: n/a Plan Duration of Treatment: One Time Treatment Comments: SALICYLIC ACID BLENDER RECOMMENDS A VIDEO FLUOROSCOPY SWALLOW STUDY TO RULE OUT STRUCTURAL DEFICITS. SALICYLIC ACID BLENDER cannot determine at bedside if structural problems are affecting her swallow response vs physiology of swallowing. - Treatment Code (1) Oropharyngeal dysphagia Code(s): R13.12 - Dysphagia, oropharyngeal phase
[2020-04-21] MEDS: MELATONIN 3 MG PO SCH (20:09)
[2020-04-21] MEDS: SEROQUEL PO SCH (20:09)
[2020-04-21] MEDS ORDERED: VALTREX PO ONE (21:00)
[2020-04-22 04:45] LABS: BASOPHILS # (AUTO) 0.1 K/uL (0-0.2); BASOPHILS % (AUTO) 0.9 % (0.0-3.0); EOSINOPHILS # (AUTO) 0.3 K/ul (0.0-0.7); EOSINOPHILS % (AUTO) 5.5 % (0.0-7.0); HEMOGLOBIN 9.3 g/dl (12.0-16.0); IMMATURE GRANULOCYTE % (AUTO) 0.3 % (0.0-5.0); LYMPHOCYTES # (AUTO) 2.5 K/uL (0.60-3.4); LYMPHOCYTES % (AUTO) 43.5 (10.0-50.0); MEAN CORPUSCULAR HEMOGLOBIN 34.3 pg (27.0-31.0); MEAN CORPUSCULAR HGB CONC 33.2 (31.8-35.4); MEAN CORPUSCULAR VOLUME 103.3 fl (81.0-99.0); MONOCYTES # (AUTO) 0.6 K/uL (0.4-2.0); NEUTROPHILS # (AUTO) 2.3 K/ul (2.0-6.9); NEUTROPHILS % (AUTO) 38.8 % (42.2-75.2); PLATELET COUNT 158 10^3/uL (140-440); RED BLOOD COUNT 2.71 10^6/ul (4.20-5.40); WHITE BLOOD COUNT 5.81 K/ul (4.6-10.2)
[2020-04-22 04:59] LABS: ALANINE AMINOTRANSFERASE 12.7 U/L (0-35); ALBUMIN 2.38 g/dL (3.5-5.0); ALKALINE PHOSPHATASE 46.2 U/L (53-141); ASPARTATE AMINO TRANSFERASE 34.2 U/L (14-36); BILIRUBIN,TOTAL 0.36 mg/dL (0.2-1.3); BLOOD UREA NITROGEN 6.7 mg/dL (7-17); CALCIUM 8.06 mg/dL (8.4-10.2); CARBON DIOXIDE 26.4 mmol/L (22-30.0); CHLORIDE 107.3 mmol/L (98-107); CREATININE 0.61 mg/dL (0.60-1.30); GLUCOSE 79.8 mg/dL (74-106); POTASSIUM 3.87 mmol/L (3.5-5.1); TOTAL PROTEIN 5.42 g/dL (6.3-8.2)
[2020-04-22] MEDS: SYNTHROID PO SCH (05:40)
[2020-04-22] MEDS ORDERED: LOVENOX SUBCUT SCH (09:00)
[2020-04-22] MEDS: ASPIRIN CHEWABLE PO SCH (09:38)
[2020-04-22] MEDS: ZOVIRAX TP SCH ×5 (09:38→20:14)
[2020-04-22] MEDS: CATAPRES PO SCH ×2 (09:39→20:13)
[2020-04-22] MEDS: LEXAPRO PO SCH (09:39)
[2020-04-22] MEDS: VALTREX PO SCH ×3 (09:39→20:12)
[2020-04-22] MEDS: BACTRIM DS 800/160 MG PO SCH ×2 (09:39→20:13)
[2020-04-22] MEDS: COLACE PO SCH ×2 (09:39→20:13)
[2020-04-22] MEDS: LOVENOX SUBCUT SCH (09:50)
--- NOTE | 2020-04-22 10:29 | PCM.PROG ---
Attending Provider: ATTENDING PROVIDER: Dr. RANDA WHITTAKER This patient is seen with Sayra Barreto, Nurse Practitioner. DATE OF SERVICE: 04/22/20 SUBJECTIVE: This 85 year old /WHITE F was hospitalized 04/17/20. The patient is resting comfortably. Speech saw the patient yesterday and recommended a video fluroroscopy. The patient is not wanting to eat still with difficulty swallowing. REVIEW OF SYSTEMS: CONSTITUTIONAL: No night sweats. No fatigue, malaise, lethargy. No fever or chills. Weakness. HEENT: Eyes: No visual changes. No eye pain. No eye discharge. ENT: No runny nose. No epistaxis. No sinus pain. No odynophagia. No congestion. RESPIRATORY: No cough, no congestion. No hemoptysis. No shortness of breath. CARDIOVASCULAR: No angina symptoms. No CHF symptoms. No atypical chest pain for CAD. No palpitations. No orthopnea.. GASTROINTESTINAL: No abdominal pain. No nausea or vomiting. No diarrhea or constipation. No hematemesis. No hematochezia. GENITOURINARY: No urgency. No frequency. No dysuria. No hematuria. No obstructive symptoms. No discharge. No pain. No significant abnormal bleeding. MUSCULOSKELETAL: No musculoskeletal pain; no joint swelling. NEUROLOGICAL: Awake, alert, confusion. No headache. No neck pain. No syncope. No seizures. No dizziness. PSYCHIATRIC: Not anxious. No depression. No suicidal thoughts. No homicidal thoughts. SKIN: No rash. No lesions. No wounds. ENDOCRINE: No unexplained weight loss. No weight gain. HEMATOLOGIC/LYMPHATIC: No anemia. No purpura. No petechiae. No prolonged or excessive bleeding. No palpable lymph nodes. PHYSICAL EXAMINATION: GENERAL: The patient is awake, alert and not oriented, lying in bed in no distress. VITAL SIGNS: Temperature 98.3 F, Pulse 57, Respiratory Rate 16, BP 117/59, Pulse Ox 97% HEENT: Head normocephalic, atraumatic. Eyes: Extraocular muscles are intact. Pupils are equal, round and reactive to light and accommodation. Ears: No lesions. Nose appeared normal. Throat: No exudate or erythema. NECK: Supple. No JVD, no carotid bruit. No lymphadenopathy or thyromegaly. LUNGS: Diminished breath sounds. Clear to auscultation. Percussion note normal. Chest symmetrical. HEART: S1, S2, no S3. No murmurs. No cyanosis or clubbing. No ascites. Pulses: Dorsalis pedis and posterior tibial pulses +1 to +2 both sides. ABDOMEN: Soft. Non-tender. Bowel sounds active. No CVA tenderness. No mass felt. EXTREMITIES: No edema. Full range of motion of all extremities, equal. NEUROLOGIC: No focal deficit. Cranial nerves II through XII are grossly intact. No headache, no double vision or headache. SKIN: Not dry. Intact. Turgor-normal. Vesicular lesion left upper lip. LYMPHATIC: No palpable lymph nodes/no lymphedema. MUSCULOSKELETAL: Normal joints with no swelling. Muscle tone is normal. LAB REVIEW: 04/22/20 04:35 04/22/20 04:35 04/22/20 04:35: Sodium 137.0, Potassium 3.87, Chloride 107.3 H, Carbon Dioxide 26.4, Anion Gap 7.17, BUN 6.7 L, Creatinine 0.61, Estimated GFR (MDRD) 93.00, BUN/Creatinine Ratio 10.98, Glucose 79.8, Calcium 8.06 L, Total Bilirubin 0.36, AST 34.2, ALT 12.7, Alkaline Phosphatase 46.2 L, Total Protein 5.42 L, Albumin 2.38 L, Globulin 3.04, Albumin/Globulin Ratio 0.78 04/22/20 04:35: WBC 5.81, RBC 2.71 L, Hgb 9.3 L, Hct 28.0 L, MCV 103.3 H, MCH 34.3 H, MCHC 33.2, RDW Coeff of Courtney 13.0, Plt Count 158, Immature Gran % (Auto) 0.3, Neut % (Auto) 38.8 L, Lymph % (Auto) 43.5, [place] % (Auto) 11.0 H, Eos % (Auto) 5.5, Baso % (Auto) 0.9, Neut # (Auto) 2.3, Lymph # (Auto) 2.5, [place] # (Auto) 0.6, Eos # (Auto) 0.3, Baso # (Auto) 0.1, Immature Gran # (Auto) 0.0 04/21/20 04:25: TSH 1.570 04/18/20 09:40: SARS-CoV-2 (PCR) Not detected ASSESSMENT: Please see below. 1. UTI 2. Dysphasia 3. 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 Valtrex 1000mg PO Q 8 hours 2. Zovirax ointment 3. Video Fluroroscopy 4. Decrease Lovenox to 30mg daily Plan and coordination of the patient's care discussed in the presence of Ground Crew Lines Person and nurse. SCRIBED BY: GIAN LU Hydrographic Engineer scribed while in presence of service performed by Dr. Whittaker/Sayra Barreto APRN on 04/22/20 ([id number])
[2020-04-22] MEDS: SEROQUEL PO SCH (20:13)
[2020-04-22] MEDS: MELATONIN 3 MG PO SCH (20:13)
[2020-04-23 05:14] LABS: BASOPHILS # (AUTO) 0.1 K/uL (0-0.2); EOSINOPHILS # (AUTO) 0.4 K/ul (0.0-0.7); EOSINOPHILS % (AUTO) 6.3 % (0.0-7.0); HEMATOCRIT 30.3 % (37.0-47.0); HEMOGLOBIN 10.1 g/dl (12.0-16.0); IMMATURE GRANULOCYTE % (AUTO) 0.3 % (0.0-5.0); LYMPHOCYTES # (AUTO) 2.2 K/uL (0.60-3.4); LYMPHOCYTES % (AUTO) 35.1 (10.0-50.0); MEAN CORPUSCULAR HEMOGLOBIN 34.2 pg (27.0-31.0); MEAN CORPUSCULAR HGB CONC 33.3 (31.8-35.4); MEAN CORPUSCULAR VOLUME 102.7 fl (81.0-99.0); MONOCYTES # (AUTO) 0.8 K/uL (0.4-2.0); MONOCYTES % (AUTO) 12.4 (0-10); NEUTROPHILS # (AUTO) 2.8 K/ul (2.0-6.9); NEUTROPHILS % (AUTO) 44.9 % (42.2-75.2); PLATELET COUNT 186 10^3/uL (140-440); RDW COEFFICIENT OF VARIATION 13.1 % (11.6-14.8); RED BLOOD COUNT 2.95 10^6/ul (4.20-5.40); WHITE BLOOD COUNT 6.21 K/ul (4.6-10.2)
[2020-04-23 05:26] LABS: ALANINE AMINOTRANSFERASE 12.5 U/L (0-35); ALBUMIN 2.66 g/dL (3.5-5.0); ALKALINE PHOSPHATASE 53.8 U/L (53-141); ASPARTATE AMINO TRANSFERASE 26.3 U/L (14-36); BILIRUBIN,TOTAL 0.33 mg/dL (0.2-1.3); BLOOD UREA NITROGEN 6.7 mg/dL (7-17); CALCIUM 8.69 mg/dL (8.4-10.2); CARBON DIOXIDE 29.5 mmol/L (22-30.0); CHLORIDE 107.1 mmol/L (98-107); CREATININE 0.64 mg/dL (0.60-1.30); GLUCOSE 80.4 mg/dL (74-106); POTASSIUM 3.84 mmol/L (3.5-5.1); SODIUM 138.1 mmol/L (134.5-145); TOTAL PROTEIN 5.77 g/dL (6.3-8.2)
[2020-04-23] MEDS: ZOVIRAX TP SCH ×6 (05:43→22:28)
[2020-04-23] MEDS: SYNTHROID PO SCH (05:43)
[2020-04-23] MEDS: VALTREX PO SCH ×3 (05:43→21:31)
[2020-04-23] MEDS: ASPIRIN CHEWABLE PO SCH (08:29)
[2020-04-23] MEDS: CATAPRES PO SCH ×2 (08:29→21:30)
[2020-04-23] MEDS: LEXAPRO PO SCH (08:29)
[2020-04-23] MEDS: COLACE PO SCH ×2 (08:30→21:31)
[2020-04-23] MEDS: BACTRIM DS 800/160 MG PO SCH ×2 (08:30→21:32)
[2020-04-23] MEDS: LOVENOX SUBCUT SCH (08:51)
[2020-04-23] MEDS: SEROQUEL PO SCH (21:31)
[2020-04-23] MEDS: MELATONIN 3 MG PO SCH (21:34)
[2020-04-24 05:25] LABS: BASOPHILS % (AUTO) 0.4 % (0.0-3.0); EOSINOPHILS # (AUTO) 0.4 K/ul (0.0-0.7); EOSINOPHILS % (AUTO) 5.3 % (0.0-7.0); HEMATOCRIT 28.2 % (37.0-47.0); HEMOGLOBIN 9.3 g/dl (12.0-16.0); IMMATURE GRANULOCYTE % (AUTO) 0.1 % (0.0-5.0); LYMPHOCYTES # (AUTO) 2.2 K/uL (0.60-3.4); LYMPHOCYTES % (AUTO) 30.5 (10.0-50.0); MEAN CORPUSCULAR HEMOGLOBIN 33.9 pg (27.0-31.0); MEAN CORPUSCULAR VOLUME 102.9 fl (81.0-99.0); MONOCYTES # (AUTO) 0.8 K/uL (0.4-2.0); NEUTROPHILS # (AUTO) 3.7 K/ul (2.0-6.9); NEUTROPHILS % (AUTO) 52.7 % (42.2-75.2); PLATELET COUNT 203 10^3/uL (140-440); RDW COEFFICIENT OF VARIATION 13.2 % (11.6-14.8); RED BLOOD COUNT 2.74 10^6/ul (4.20-5.40); WHITE BLOOD COUNT 7.11 K/ul (4.6-10.2)
[2020-04-24] MEDS: VALTREX PO SCH ×2 (05:27→14:04)
[2020-04-24] MEDS: SYNTHROID PO SCH (05:30)
[2020-04-24 05:36] LABS: ALANINE AMINOTRANSFERASE 10.7 U/L (0-35); ALBUMIN 2.51 g/dL (3.5-5.0); ALKALINE PHOSPHATASE 51.5 U/L (53-141); ASPARTATE AMINO TRANSFERASE 21.8 U/L (14-36); BILIRUBIN,TOTAL 0.29 mg/dL (0.2-1.3); BLOOD UREA NITROGEN 8.3 mg/dL (7-17); CALCIUM 8.45 mg/dL (8.4-10.2); CARBON DIOXIDE 28.7 mmol/L (22-30.0); CHLORIDE 105.9 mmol/L (98-107); CREATININE 0.73 mg/dL (0.60-1.30); GLUCOSE 88.2 mg/dL (74-106); POTASSIUM 4.17 mmol/L (3.5-5.1); SODIUM 136.5 mmol/L (134.5-145); TOTAL PROTEIN 5.55 g/dL (6.3-8.2)
[2020-04-24] MEDS: ZOVIRAX TP SCH ×4 (05:41→14:04)
[2020-04-24] MEDS: LOVENOX SUBCUT SCH (09:59)
--- NOTE | 2020-04-24 09:59 | PCM.PROG ---
Attending Provider: ATTENDING PROVIDER: Dr. RANDA WHITTAKER This patient is seen with Sayra Barreto, Nurse Practitioner. DATE OF SERVICE: 04/24/20 SUBJECTIVE: This 85 year old /WHITE F was hospitalized 04/17/20. The patient is resting comfortably. Her oral intake is still not great. Family has declined video fluoroscopy given age and other medical conditions. She maybe close to referral for palliative care, will evaluate after going to group home. REVIEW OF SYSTEMS: CONSTITUTIONAL: No night sweats. No fatigue, malaise, lethargy. No fever or chills. Weakness. HEENT: Eyes: No visual changes. No eye pain. No eye discharge. ENT: No runny nose. No epistaxis. No sinus pain. No odynophagia. No congestion. RESPIRATORY: No cough, no congestion. No hemoptysis. No shortness of breath. CARDIOVASCULAR: No angina symptoms. No CHF symptoms. No atypical chest pain for CAD. No palpitations. No orthopnea.. GASTROINTESTINAL: No abdominal pain. No nausea or vomiting. No diarrhea or constipation. No hematemesis. No hematochezia. GENITOURINARY: No urgency. No frequency. No dysuria. No hematuria. No obstructive symptoms. No discharge. No pain. No significant abnormal bleeding. MUSCULOSKELETAL: No musculoskeletal pain; no joint swelling. NEUROLOGICAL: Awake, alert, confused. No headache. No neck pain. No syncope. No seizures. No dizziness. PSYCHIATRIC: Not anxious. No depression. No suicidal thoughts. No homicidal thoughts. SKIN: No rash. No lesions. No wounds. ENDOCRINE: No unexplained weight loss. No weight gain. HEMATOLOGIC/LYMPHATIC: No anemia. No purpura. No petechiae. No prolonged or excessive bleeding. No palpable lymph nodes. PHYSICAL EXAMINATION: GENERAL: The patient is awake, alert and not oriented, lying in bed in no dis tress. VITAL SIGNS: Temperature 98.3 F, Pulse 62, Respiratory Rate 16, BP 104/55, Pulse Ox 96% HEENT: Head normocephalic, atraumatic. Eyes: Extraocular muscles are intact. Pupils are equal, round and reactive to light and accommodation. Ears: No lesions. Nose appeared normal. Throat: No exudate or erythema. NECK: Supple. No JVD, no carotid bruit. No lymphadenopathy or thyromegaly. LUNGS: Diminished breath sounds. Clear to auscultation. Percussion note normal. Chest symmetrical. HEART: S1, S2, no S3. No murmurs. No cyanosis or clubbing. No ascites. Pulses: Dorsalis pedis and posterior tibial pulses +1 to +2 both sides. ABDOMEN: Soft. Non-tender. Bowel sounds active. No CVA tenderness. No mass felt. EXTREMITIES: No edema. Full range of motion of all extremities, equal. NEUROLOGIC: No focal deficit. Cranial nerves II through XII are grossly intact. No headache, no double vision or headache. SKIN: Not dry. Intact. Turgor-normal. Fever blister left upper lip. LYMPHATIC: No palpable lymph nodes/no lymphedema. MUSCULOSKELETAL: Normal joints with no swelling. Muscle tone is normal. LAB REVIEW: 04/24/20 05:10 04/24/20 05:10 04/24/20 05:10: Sodium 136.5, Potassium 4.17, Chloride 105.9, Carbon Dioxide 28.7, Anion Gap 6.07, BUN 8.3, Creatinine 0.73, Estimated GFR (MDRD) 75.00, BUN/Creatinine Ratio 11.36, Glucose 88.2, Calcium 8.45, Total Bilirubin 0.29, AST 21.8, ALT 10.7, Alkaline Phosphatase 51.5 L, Total Protein 5.55 L, Albumin 2.51 L, Globulin 3.04, Albumin/Globulin Ratio 0.82 04/24/20 05:10: WBC 7.11, RBC 2.74 L, Hgb 9.3 L, Hct 28.2 L, MCV 102.9 H, MCH 33.9 H, MCHC 33.0, RDW Coeff of [place] 13.2, Plt Count 203, Immature Gran % (Auto) 0.1, Neut % (Auto) 52.7, Lymph % (Auto) 30.5, [place] % (Auto) 11.0 H, Eos % (Auto) 5.3, Baso % (Auto) 0.4, Neut # (Auto) 3.7, Lymph # (Auto) 2.2, [place] # (Auto) 0.8, Eos # (Auto) 0.4, Baso # (Auto) 0.0, Immature Gran # (Auto) 0.0 ASSESSMENT: Please see below. 1. UTI 2. Chronic anemia 3. Demential with behavioral disturbances 4. Loss of appetite. PLAN: 1. Discharge to [place] 2. See speech therapy at group home 3. Protonix 40mg BID 4. Valtrex 1 gram TID for three days 5. Finish Bactrim times two days 6. Zovirax ointment QID for one week 7. May need to discuss Hospice referral with family at [facility]. Plan and coordination of the patient's care discussed in the presence of Library Clerical Assistant and nurse. SCRIBED BY: Rk VALERIO scribed while in presence of service performed by Dr. Whittaker/Sayra Barreto APRN on 04/24/20 ([id number])
[2020-04-24] MEDS: CATAPRES PO SCH (10:04)
[2020-04-24] MEDS: LEXAPRO PO SCH (10:04)
[2020-04-24] MEDS: COLACE PO SCH (10:04)
[2020-04-24] MEDS: BACTRIM DS 800/160 MG PO SCH (10:04)
[2020-04-24] MEDS: ASPIRIN CHEWABLE PO SCH (10:04)
--- NOTE | 2020-04-24 12:26 | CM.DICTOOL ---
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) DYSLIPIDEMIA VASCULAR DEMENTIA WITH BEHAVIORS HYPOTHYROIDISM ECHOCARDIOGRAM: 08/21/2019 LVEF 68% ENLARGED LEFT ATRIAL CAVITY (4.7) NORMAL LV CONTRACTILITY NORMAL VALVES LAST VITALS Temp Pulse Resp BP Pulse Ox 98.3 F 62 16 104/55 L 96 04/24/20 05:25 04/24/20 05:25 04/24/20 05:25 04/24/20 05:25 04/24/20 05:25 TAKE THESE MEDICATIONS AT HOME Acetaminophen (Acetaminophen 500 Mg Tablet) 1,000 mg PO Q6H PRN PRN Reason: Mild Pain Last Admin: 04/18/20 09:37 Dose: 1,000 mg Documented by: Acyclovir (Acyclovir 15 Gm Oint) 1 applic TP 4 TIMES DAILY PENDING SALE TO [facility] Last Admin: 04/24/20 09:59 Dose: 1 applic Documented by: Aspirin (Aspirin 81 Mg Tab.Chew) 81 mg PO DAILYWM PENDING SALE TO [facility] Last Admin: 04/24/20 10:04 Dose: 81 mg Documented by: Bisacodyl (Bisacodyl 10 Mg Supp.Rect) 10 mg RC DAILY PRN PRN Reason: Constipation Clonidine (Clonidine Hcl 0.1 Mg Tablet) 0.1 mg PO BID PENDING SALE TO [facility] Last Admin: 04/24/20 10:04 Dose: 0.1 mg Documented by: Docusate Sodium (Docusate Sodium 100 Mg Capsule) 100 mg PO BID PENDING SALE TO [facility] Last Admin: 04/24/20 10:04 Dose: 100 mg Documented by: Escitalopram Oxalate (Escitalopram Oxalate 10 Mg Tablet) 20 mg PO DAILY PENDING SALE TO [facility] Last Admin: 04/24/20 10:04 Dose: 20 mg Documented by: Levothyroxine Sodium (Levothyroxine Sodium 50 Mcg Tablet) 50 mcg PO 0630 PENDING SALE TO [facility] Last Admin: 04/24/20 05:30 Dose: 50 mcg Documented by: Non-Formulary Medication (Melatonin) 3 mg PO BEDTIME PENDING SALE TO [facility] Last Admin: 04/23/20 21:34 Dose: 3 mg Documented by: Non-Formulary Medication (Valproic Acid (As Sodium Salt)) 500 mg PO BEDTIME PENDING SALE TO [facility] Last Admin: 04/23/20 21:35 Dose: 500 mg Documented by: Non-Formulary Medication (Valproic Acid (As Sodium Salt)) 250 mg PO DAILY PENDING SALE TO [facility] Last Admin: 04/24/20 10:05 Dose: 250 mg Documented by: Ondansetron HCl (Ondansetron Hcl 4 Mg Tablet) 4 mg PO Q6H PRN PRN Reason: Nausea / Vomiting Quetiapine Fumarate (Quetiapine Fumarate 25 Mg Tablet) 12.5 mg PO BEDTIME PENDING SALE TO [facility] Last Admin: 04/23/20 21:31 Dose: 12.5 mg Documented by: Trimethoprim/Sulfamethoxazole (Sulfamethoxazole/Trimethoprim 800/160 Mg Tablet) 1 tab PO Q12HR SILVINA Stop: 04/25/20 23:00 Last Admin: 04/24/20 10:04 Dose: 1 tab Documented by: Valacyclovir HCl (Valacyclovir Hcl 500 Mg Tablet) 1,000 mg PO TID SILVINA FOR 3 DAYS Last Admin: 04/24/20 05:27 Dose: 1,000 mg Documented by: Vitmain B12 1000 mcg IM MONTHLY PROTONIX 40 MG BID PO LAST ADMIN: ALLERGIES atorvastatin [From Lipitor] Adverse Reaction (Verified 08/18/19 14:52) Penicillins Adverse Reaction (Verified 08/18/19 14:52) antihyperlipidemics Adverse Reaction (Uncoded 08/18/19 14:52) dyes Adverse Reaction (Uncoded 08/18/19 14:52) DISCONTINUED MEDICATIONS NONE NEW PRESCRIPTIONS: ACYCLOVIR (ZOVIRAX) TOPICAL 4 TIMES A DAY FOR 1 WEEK VALTREX 1000 MG TID FOR 3 DAYS BACTRIM DS 1 EVERY 12 HOURS TOTAL OF 7 DAYS (STARTED ON 04-19-2020) PROTONIX 40 MG BID SMOKING: NOT APPLICABLE DISEASE SPECIFIC EDUCATION: NOT APPLICABLE; PATIENT IS ORIENTED TO SELF ONLY LAB REVIEW: 04/24/20 05:10 04/24/20 05:10 04/24/20 05:10: Sodium 136.5, Potassium 4.17, Chloride 105.9, Carbon Dioxide 28.7, Anion Gap 6.07, BUN 8.3, Creatinine 0.73, Estimated GFR (MDRD) 75.00, BUN/Creatinine Ratio 11.36, Glucose 88.2, Calcium 8.45, Total Bilirubin 0.29, AST 21.8, ALT 10.7, Alkaline Phosphatase 51.5 L, Total Protein 5.55 L, Albumin 2.51 L, Globulin 3.04, Albumin/Globulin Ratio 0.82 04/24/20 05:10: WBC 7.11, RBC 2.74 L, Hgb 9.3 L, Hct 28.2 L, MCV 102.9 H, MCH 33.9 H, MCHC 33.0, RDW Coeff of Courtney 13.2, Plt Count 203, Immature Gran % (Auto) 0.1, Neut % (Auto) 52.7, Lymph % (Auto) 30.5, [place] % (Auto) 11.0 H, Eos % (Auto) 5.3, Baso % (Auto) 0.4, Neut # (Auto) 3.7, Lymph # (Auto) 2.2, [place] # (Auto) 0.8, Eos # (Auto) 0.4, Baso # (Auto) 0.0, Immature Gran # (Auto) 0.0 PLAN: DISCHARGE TO [facility] DIET: PUREED WITH NECTAR THICK LIQUIDS BOOST SUPPLEMENT BID (240 ML) DIETITIAN TO SEE FOR OPTIMNAL NUTRITIONAL INTAKE SPEECH THERAPY EVALUATE FOR LEAST RESTRICTIVE DIET VITAL SIGNS DAILY FOR 1 WEEK, THEN WEEKLY INCONTINENT CARE PRN DECUBITUS PRECAUTIONS TURN/REPOSITION EVERY 2 HOURS ACTIVITY: UP TO CHAIR 1-2 TIMES DAILY WITH USE OF VIDHYA LIFT CBC, CMP IN ONE WEEK ([facility]) THEN CBC, CMP, VALPORIC ACID LEVEL MONTHLY TSH, FREE T4, A1C, LIPIDS EVERY 6 MONTHS CODE STATUS: DO NOT RESUSCITATE PATIENT TO BE SEEN ON DETENTION ROUNDS IN 7-[address] WHITTAKER/BETZY VEGAS APRN/ANDRE EMMANUEL APRN MS. POON IS ALERT TO PERSON ONLY. SHE IS COOPERATIVE WITH CARE, BUT IS TOTALLY DEPENDENT ON STAFF FOR CARE. MS. POON IS BED BOUND EXCEPT FOR TRANSFERS USING A VIDHYA LIFT. MS. POON IS INCONTINENT OF BOWEL AND BLADDER. SHE REQUIRES TURNING BY NURSING STAFF. HEEL PROTECTORS ARE IN PLACE TO FLOAT HEELS OFF BED. MEAL INTAKES ARE POOR TO FAIR AND NOTED AT 5-40%. SHE WILL DRINK BOOST SUPPLEMENT; AT LEAST PARTIALLY WHEN OFFERED. SHE WAS SEEN BY THE SPEECH THERAPIST HERE AND RECOMMENDATIONS WERE DISCUSSED WITH THE SON, ERYN. HE REPORTS HE AND HIS SISTER DO NOT WISH ANY TYPE OF VIDEO FLUOROSCOPY TO EVALUATE HER SWALLOWING. SKIN IS INTACT. A SMALL AREA, DIAGNOSED HERPES SIMPLEX IS NOTED TO THE LEFT UPPER LIP. TREATMENT STARTED OF ZOVIRAX TOPICAL AND VALTREX ORAL, THIS WILL CONTINUE AT DISCHARGE. MD BETZY TORRES, HOME DECORATOR
[2020-04-24 14:46] VITALS: BP 96/49; TEMP 97.1
--- NOTE | 2020-04-25 13:34 | PN ---
DATE OF SERVICE: 04/23/20 SUBJECTIVE: 85-year-old white female hospitalized with UTI. She was treated with Sulfa. The patient has problems swallowing. Further tests in the way of GI consult, barium swallow, et cetera was declined by the family. REVIEW OF SYSTEMS: CONSTITUTIONAL: No night sweats. No fatigue, malaise, lethargy. No fever or chills. HEENT: Eyes: No visual changes. No eye pain. No eye discharge. ENT: No runny nose. No epistaxis. No sinus pain. No sore throat. No odynophagia. No congestion. RESPIRATORY: No cough, no congestion. No hemoptysis. No shortness of breath. CARDIOVASCULAR: No angina symptoms. No CHF symptoms. No atypical chest pain for CAD. No palpitations. No PND. No orthopnea. GASTROINTESTINAL: No abdominal pain. No nausea or vomiting. No diarrhea or constipation. No hematemesis. No hematochezia. GENITOURINARY: No urgency. No frequency. No dysuria. No hematuria. No obstructive symptoms. No discharge. No pain. No significant abnormal bleeding. MUSCULOSKELETAL: No musculoskeletal pain; no joint swelling. NEUROLOGICAL: No headache. No neck pain. No syncope. No seizures. No dizziness. PSYCHIATRIC: The patient is alert but confused. Not anxious. No depression. No suicidal thoughts. No homicidal thoughts. SKIN: No rash. No lesions. No wounds. ENDOCRINE: No unexplained weight loss. No weight gain. HEMATOLOGIC/LYMPHATIC: No anemia. No purpura. No petechiae. No prolonged or excessive bleeding. No palpable lymph nodes. PHYSICAL EXAMINATION: VITAL SIGNS: Temperature 97.7, pulse 60, respiratory rate 16, BP 140/65, pulse ox 98%. HEENT: Head normocephalic, atraumatic. Eyes: Extraocular muscles are intact. Pupils are equal, round and reactive to light and accommodation. Ears: No lesions. Nose appeared normal. Throat: No exudate or erythema. NECK: Supple. No JVD, no carotid bruit. No lymphadenopathy or thyromegaly. LUNGS: Decreased breath sounds but clear to auscultation. Percussion note normal. Chest symmetrical. HEART: S1, S2, no S3. No murmurs. No cyanosis or clubbing. No ascites. Pulses: Dorsalis pedis and posterior tibial pulses +1 to +2 bilaterally. ABDOMEN: Soft. Nontender. Bowel sounds active. No CVA tenderness. No mass felt. EXTREMITIES: No edema. Full range of motion of all extremities, equal. NEUROLOGIC: No focal deficit. Cranial nerves II through XII are grossly intact. No headache, no double vision or headache. SKIN: Not dry. Intact. Turgor - normal. LYMPHATIC: No palpable lymph nodes/no lymphedema. MUSCULOSKELETAL: Normal joints with no swelling. Muscle tone is normal. LABS: Hemoglobin 10.1, hematocrit 30, WBC 6,200, normal differential. Creatinine 0.6, BUN 6, potassium 3.8. ASSESSMENT: 1. UTI - seems to be under control. 2. Dysphagia cannot be further evaluated because of the patient's overall mental status and condition and that the family has declined. In my opinion, he is not in the shape to undergo any radiographical examination like upper GI where you need cooperation from the patient. Dementia is advanced. GI consultation declined by the family. TIME SPENT: More than 30 minutes. Plan and coordination of the patient's care discussed in the presence of nurse. MALCOLM
--- NOTE | 2020-04-25 13:37 | PN ---
DATE OF SERVICE: 04/24/20 SUBJECTIVE: The patient was seen and examined with the nurse practitioner. The patient's condition is stable. She is going to be discharged to the residential. The patient is DNR. Again, further investigation for dysphagia declined by family. Prognosis is poor. She is DNR. TIME SPENT: More than 30 minutes. Plan and coordination of the patient's care discussed in the presence of nurse. MACLOLM
--- NOTE | 2020-04-25 13:44 | PN ---
BILLING 04/17/20 ADMISSION DAY LEVEL 5 04/18/20 INTERMEDIATE 04/19/20 INTERMEDIATE 04/20/20 INTERMEDIATE 04/21/20 INTERMEDIATE 04/22/20 INTERMEDIATE 04/23/20 INTERMEDIATE 04/24/20 DISCHARGE MTDD
--- NOTE | 2020-04-25 14:13 | DS ---
DATE OF SERVICE: 04/24/20 FINAL DIAGNOSIS: 1. UTI, E-COLI 2. ENCEPHALOPATHY 3. DYSPHAGIA 4. ANEMIA 5. HERPES SIMPLEX 6. HYPERTENSION 7. 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 DYSLIPIDEMIA 9. VASCULAR DEMENTIA WITH BEHAVIORS 10. HYPOTHYROIDISM 11. ECHOCARDIOGRAM: 08/21/2019; LVEF 68%; ENLARGED LEFT ATRIAL CAVITY (4.7); NORMAL LV CONTRACTILITY; NORMAL VALVES LAST VITALS Temp Pulse Resp BP Pulse Ox 98.3 F 62 16 104/55 L 96 04/24/20 05:25 04/24/20 05:25 04/24/20 05:25 04/24/20 05:25 04/24/20 05:25 DISCHARGE INSTRUCTIONS: 1. DISCHARGE TO [facility]. 2. PATIENT TO BE SEEN ON SENIOR LIVING ROUNDS IN 7-[address] WHITTAKER/BETZY VEGAS, ACUTE CARE SURGEON/ANDRE EMMANUEL APRN. 3. CBC, CMP IN ONE WEEK ([facility])THEN CBC, CMP, VALPORIC ACID LEVEL MONTHLY, TSH, FREE T4, A1C, LIPIDS EVERY 6 MONTHS. 4. SPEECH THERAPY EVALUATE FOR LEAST RESTRICTIVE DIET. 5. VITAL SIGNS DAILY FOR 1 WEEK, THEN WEEKLY. 6. INCONTINENT CARE PRN. 7. DECUBITUS PRECAUTIONS. TURN/REPOSITION EVERY 2 HOURS. MEDICATIONS AT DISCHARGE: Acetaminophen (Acetaminophen 500 Mg Tablet) 1,000 mg PO Q6H PRN PRN Reason: Mild Pain Last Admin: 04/18/20 09:37 Dose: 1,000 mg Documented by: Acyclovir (Acyclovir 15 Gm Oint) 1 applic TP 4 TIMES DAILY [facility] Last Admin: 04/24/20 09:59 Dose: 1 applic Documented by: Aspirin (Aspirin 81 Mg Tab.Chew) 81 mg PO DAILYWM [facility] Last Admin: 04/24/20 10:04 Dose: 81 mg Documented by: Bisacodyl (Bisacodyl 10 Mg Supp.Rect) 10 mg RC DAILY PRN PRN Reason: Constipation Clonidine (Clonidine Hcl 0.1 Mg Tablet) 0.1 mg PO BID [facility] Last Admin: 04/24/20 10:04 Dose: 0.1 mg Documented by: Docusate Sodium (Docusate Sodium 100 Mg Capsule) 100 mg PO BID [facility] Last Admin: 04/24/20 10:04 Dose: 100 mg Documented by: Escitalopram Oxalate (Escitalopram Oxalate 10 Mg Tablet) 20 mg PO DAILY [facility] Last Admin: 04/24/20 10:04 Dose: 20 mg Documented by: Levothyroxine Sodium (Levothyroxine Sodium 50 Mcg Tablet) 50 mcg PO 0630 [facility] Last Admin: 04/24/20 05:30 Dose: 50 mcg Documented by: Non-Formulary Medication (Melatonin) 3 mg PO BEDTIME [facility] Last Admin: 04/23/20 21:34 Dose: 3 mg Documented by: Non-Formulary Medication (Valproic Acid (As Sodium Salt)) 500 mg PO BEDTIME [facility] Last Admin: 04/23/20 21:35 Dose: 500 mg Documented by: Non-Formulary Medication (Valproic Acid (As Sodium Salt)) 250 mg PO DAILY [facility] Last Admin: 04/24/20 10:05 Dose: 250 mg Documented by: Ondansetron HCl (Ondansetron Hcl 4 Mg Tablet) 4 mg PO Q6H PRN PRN Reason: Nausea / Vomiting Quetiapine Fumarate (Quetiapine Fumarate 25 Mg Tablet) 12.5 mg PO BEDTIME [facility] Last Admin: 04/23/20 21:31 Dose: 12.5 mg Documented by: Trimethoprim/Sulfamethoxazole (Sulfamethoxazole/Trimethoprim 800/160 Mg Tablet) 1 tab PO Q12HR [facility] Stop: 04/25/20 23:00 Last Admin: 04/24/20 10:04 Dose: 1 tab Documented by: Valacyclovir HCl (Valacyclovir Hcl 500 Mg Tablet) 1,000 mg PO TID [facility] FOR 3 DAYS Last Admin: 04/24/20 05:27 Dose: 1,000 mg Documented by: Vitamin B12 1000 mcg IM MONTHLY PROTONIX 40 MG BID PO LAST ADMIN: NEW PRESCRIPTIONS: ACYCLOVIR (ZOVIRAX) TOPICAL 4 TIMES A DAY FOR 1 WEEK VALTREX 1000 MG TID FOR 3 DAYS BACTRIM DS 1 EVERY 12 HOURS TOTAL OF 7 DAYS (STARTED ON 04-19-2020) PROTONIX 40 MG BID DISCONTINUED MEDICATIONS: NONE DIET INSTRUCTIONS: PUREED WITH NECTAR THICK LIQUIDS BOOST SUPPLEMENT BID (240 ML) DIETITIAN TO SEE FOR OPTIMNAL NUTRITIONAL INTAKE ACTIVITY: UP TO CHAIR 1-2 TIMES DAILY WITH USE OF VIDHYA LIFT SMOKING: NOT APPLICABLE DISEASE SPECIFIC EDUCATION: NOT APPLICABLE; PATIENT IS ORIENTED TO SELF ONLY HOSPITAL COURSE: This is a white female who is a resident of [facility]. They had reported that she had had some difficulty swallowing with increased secretions and lethargy. She was then sent to the ER and evaluated. She was found to have a urinary tract infection, was positive for E. Coli, anemia. She was placed initially on Rocephin then was transferred to Bactrim DS 800 mg p.o. b.i.d. which was all sensitive to the E. coli. She was evaluated by speech therapy. She felt that she did not have a problem swallowing, that she may have some physical barrier or be having esophageal spasm. She recommended a video fluoroscopy. Both the son and the sister, the son is a POA. I decided that they would rather not have this done as they do not plan on having any sort of surgery if there was to be an abnormality. The speech therapist agreed that this was acceptable. She can eat fine. She is to continue with pureed diet with nectar thick liquids, Boost supplement. We will continue a speech therapy evaluate and treat [facility]. She also developed a fever blister on her left upper lip while she was here. She was started on Valtrex 1 gm p.o. t.i.d. and given Acyclovir cream - this has now crusted over. She had not ran any fever. Her labs have all improved. Kidney function is normal with BUN of 8.3 and creatinine of 0.73. Hemoglobin has been steady but up and down between 9.3 and 11. This has fluctuated given fluid. She was initially placed on Lovenox. Will discontinue this. Will followup with CBC, C[facility] on Tuesday [facility] the [facility]. She will also be started on Protonix 40 mg b.i.d. She is in stable condition. I do believe she does have a poor prognosis and may be close to needing a hospice referral. We will further discuss this with case management and social science manager at the [facility]. Given her advanced dementia, her decreased appetite, her overall condition the family is understanding that her prognosis is poor and the nature of the disease. Will discharge her back in stable condition and followup with her at the [facility]. LAB REVIEW: 04/24/20 05:10: Sodium 136.5, Potassium 4.17, Chloride 105.9, Carbon Dioxide 28.7, Anion Gap 6.07, BUN 8.3, Creatinine 0.73, Estimated GFR (MDRD) 75.00, BUN/Creatinine Ratio 11.36, Glucose 88.2, Calcium 8.45, Total Bilirubin 0.29, AST 21.8, ALT 10.7, Alkaline Phosphatase 51.5 L, Total Protein 5.55 L, Albumin 2.51 L, Globulin 3.04, Albumin/Globulin Ratio 0.82 04/24/20 05:10: WBC 7.11, RBC 2.74 L, Hgb 9.3 L, Hct 28.2 L, MCV 102.9 H, MCH 33.9 H, MCHC 33.0, RDW Coeff of Courtney 13.2, Plt Count 203, Immature Gran % (Auto) 0.1, Neut % (Auto) 52.7, Lymph % (Auto) 30.5, [place] % (Auto) 11.0 H, Eos % (Auto) 5.3, Baso % (Auto) 0.4, Neut # (Auto) 3.7, Lymph # (Auto) 2.2, [place] # (Auto) 0.8, Eos # (Auto) 0.4, Baso # (Auto) 0.0, Immature Gran # (Auto) 0.0 TIME SPENT: More than 60 minutes. MTDD
== END 2020-04-24 15:32 | DRG 884 ==
LOC: ED 18:21 → MEDSURG B 23:19
PROVIDERS: ADMIT Internal Medicine; ATTEND Internal Medicine
DX: F03.91 Unspecified dementia, unspecified severity, with behavioral disturbance; G93.40 Encephalopathy, unspecified; N39.0 Urinary tract infection, site not specified; I10 Essential (primary) hypertension; B00.9 Herpesviral infection, unspecified; R13.10 Dysphagia, unspecified; E03.9 Hypothyroidism, unspecified; R63.0 Anorexia; R51.9 Headache, unspecified; D64.9 Anemia, unspecified; B96.20 Unspecified Escherichia coli [E. coli] as the cause of diseases classified elsewhere; R41.82 Altered mental status, unspecified; E86.0 Dehydration; E78.5 Hyperlipidemia, unspecified